=== PATIENT | female | born 1955 | race Caucasian/White ===

== ENCOUNTER 2020-01-02 12:53 | Outpatient (CLI) | payer OTHER, SELFPAY ==
--- NOTE | 2020-01-02 13:01 | MM_ITS ---
WS: [id number] BILATERAL SCREENING DIGITAL MAMMOGRAM WITH CAD HISTORY: SCREEN COMPARISON: 10/14/2013 Bilateral CC and MLO views submitted. Computer aided detection analyzed. Breast composition: There are scattered areas of fibroglandular density. No suspicious masses, microc alcifications or architectural distortion. Several calcifications in the anterior RIGHT breast have b een present since 2013. MM/[place] [id number] IMPRESSION: BI-RADS: 2-Benign FOLLOW UP: 1 Year Follow-up
== END 2020-01-02 12:54 | disposition home or self-care (01) ==
LOC: RADSHAW 12:57
PROVIDERS: Visit Provider Nurse Practitioner
DX: Z12.31 Encounter for screening mammogram for malignant neoplasm of breast (principal)
CPT/HCPCS: 77067

== ENCOUNTER 2021-01-01 14:18 | Outpatient (CLI) | payer OTHER, SELFPAY ==
--- NOTE | 2021-01-01 14:26 | MM_ITS ---
WS: [id number] BILATERAL SCREENING DIGITAL MAMMOGRAM WITH CAD HISTORY: SCREENING COMPARISON: 01/02/2020 and 10/14/2013 Bilateral CC and MLO views submitted. Computer aided detection analyzed. Breast composition: There are scattered areas of fibroglandular density. No suspicious masses, microc alcifications or architectural distortion. Benign calcifications in the anterior RIGHT breast. MM/[place] [id number] IMPRESSION: BI-RADS: 2-Benign FOLLOW UP: 1 Year Follow-up
== END 2021-01-01 14:19 | disposition home or self-care (01) ==
LOC: RADSHAW 14:23
PROVIDERS: Visit Provider Nurse Practitioner
DX: Z12.31 Encounter for screening mammogram for malignant neoplasm of breast (principal)
CPT/HCPCS: 77067

== ENCOUNTER → 2021-10-18 15:51 | Outpatient (BNVA) | payer MEDICARE, MEDICAID, SELFPAY | PROVIDERS: Visit Provider Nurse Practitioner | DX: Z13.6 Encounter for screening for cardiovascular disorders (principal); I10 Essential (primary) hypertension | CPT/HCPCS: 80053; 80061; 81000; 84443; 85025 ==

== ENCOUNTER 2021-10-21 21:46 | Emergency (ER) | payer MEDICARE, MEDICAID, SELFPAY ==
[2021-10-21 21:57] VITALS: BP 141/89; PULSE 83; RESP 16; TEMP 36.7; O2SAT 94; BMI 18.9
--- NOTE | 2021-10-21 22:48 | W.ED.WOUNDLC ---
HPI - Wound/Laceration General: Chief Complaint: Wound/Laceration Stated Complaint: Fall-Face/Eye Lac-bleeding Time Seen by Provider: 10/21/21 22:43 History of Present Illness: Ms. Rogers is a 66-year-old lady not on anticoagulation who is a smoker and daily drinker presents emerged department due to fall. She reports largely being at her baseline health and drinking about a case of beer today. She fell after tripping possibly over a pet and struck her face on the corner of a dresser. She denies prodromal symptoms or anything that prompted this other than tripping. She has otherwise been at her baseline health. She immediately had pain and bleeding which took some time to stop. She denies associated visual changes associate with her laceration eye. She does not have eye pain. no other specific changes in health, exacerbating, or alleviating factors identified. Onset (ago): minute(s) Location: face Patient tetanus UTD: No (unknown) Associated symptoms: Reports no associated symptoms Review of Systems General: Reports: 10 or more systems reviewed and unremarkable except in HPI and below PFSH ED PFSH: Medical History Cigarette smoker Surgical History History of foot surgery right and left foot History of hernia repair History of tonsillectomy and adenoidectomy History of tubal ligation Family History Denies family history of Diabetes Dementia Cancer Hypertension Social History Smoking and tobacco status: current every day smoker Second hand smoke exposure: No Smoking risk assessment/counseling performed?: Yes Alcohol intake: unknown Desire information about alcohol rehabilitation?: No Counseling given: No Desire information about substance/drug rehabilitation?: No Counseling given: No Adopted: No Caregiver/support person: No Lives independently: Yes Household members: spouse Housing: House Number of children: 1 service: No Current occupational status: retired History of recent travel: No Current gender identity: Female Physical Exam Const: COMMON NORMALS: alert GENERAL APPEARANCE: cooperative and well developed HENMT: COMMON NORMALS: normocephalic and atraumatic HEAD & SCALP: normocephalic and atraumatic THROAT: posterior oropharynx normal OTHER: No septal hematoma, no sweet signs or raccoon eyes, no otorhinorrhea. Eye: COMMON NORMALS: conjunctivae normal CONJUNCTIVA: Yes conjunctivae normal SCLERA: sclerae normal EYE IMAGES: 1. approximate area of laceration Neck/C-Spine: COMMON NORMALS: supple GENERAL: Yes trachea midline Resp: COMMON NORMALS: normal respiratory effort EFFORT & INSPECTION: Yes able to speak in complete sentences AUSCULTATION: diminished lung sounds Cardio: COMMON NORMALS: regular rate and regular rhythm RATE: regular rate RHYTHM: regular rhythm GI: COMMON NORMALS: Soft to palpation PALPATION: Yes Soft to palpation and No Tenderness to palpation present (GI) PERCUSSION: normal to percussion Extremity: GENERAL: Yes normal exam except as noted and No edema Neuro: COMMON NORMALS: moves all extremities SENSORIUM/ORIENTATION: Yes alert and No Orientation impaired Skin: NARRATIVE SKIN EXAM: scatter skin tears without active bleeding or need for repair on BUE Course ED course: - Patient was seen and evaluated by me at bedside - Patient placed on cardiac monitors, IV access obtained - Initial evaluation notable for exam as above, lower right eyelid laceration concerning for canalicular injury - Tdap ordered - Imaging notable for no acute bony abnormality or internal injury requiring intervention - Visual acuity: Right 20/70, left 20/100, bilaterally 20/70. Patient reports history of use of glasses. - I discussed the case with Elbert KIRAN who discussed the case with Dr. Ortiz with ophthalmology. He reviewed photographs that I took and sent with patient's permission. Patient can safely follow-up in the morning and have closure in clinic with indicated procedures. Ointment per their recommendations. - Upon serial reexamination after treatment the patient was improved, she appeared clinically sober - Based on patient history, evaluation, and testing as interpreted the most likely cause of the patient's condition is eyelid laceration secondary to facial trauma. - The results of ED evaluation were discussed with the patient including multiple discussions with regards to importance of follow-up for seen in the morning. I discussed prescriptions and/or symptomatic cares (if applicable) including appropriate and responsible use, followup plan, and return precautions. The patient verbalized understanding and felt safe for discharge. - Patient discharged in satisfactory condition. Note: Click bubbles or prepopulated tamez in note writing are used for assistance with data collection and billing and are inherently more limited than narrative and other text portions of this note. Please use narrative for additional clinical history and defer to narrative/free test for any case of contradictory information. If information appears in only free text or click bubble it should be considered present or absent as reported. Please contact note commercial loan underwriter for clarifications of clinical information or contradictory information. MDM is a brief summary, contradictory or erroneous seeming information should be clarified and full note should be reviewed. Vital Signs: Vital signs: Vital Signs Temperature 98.1 F 10/21/21 21:57 Pulse Rate 79 10/21/21 23:05 Respiratory Rate 20 H 10/21/21 23:05 Blood Pressure 141/95 10/21/21 23:05 Pulse Oximetry 95 10/21/21 23:05 MDM - Wound/Laceration Medical Decision Making 66-year-old lady presenting the emergency department due to head injury and laceration related to fall while drinking. Patient has significant laceration in the inferior lid medially near the canthus concerning for canalicular laceration. Discussed with ophthalmology who reviewed pictures taken with the patient's permission. Visual acuity 20/70 right/bilateral and 20/100 left. Scattered abrasions and skin tears not requiring repair otherwise noted. No other injury identified on CT scan. Plan to have patient call ophthalmology clinic first thing in the morning and be seen same day for wound closure and appropriate treatments. Continue Maxitrol ointment. Medical Records I reviewed the patient's medical records. Lab Data I reviewed the patient's lab results. Radiology Impressions Face CT 10/21/21 23:11 IMPRESSION: No acute facial fracture. Other than the absence of teeth no significant change compared with 10/01/[address] 10/21/21 23:11 IMPRESSION: No acute intracranial abnormality. Discharge Plan Discharge Patient Disposition: Home Clinical Impression: Laceration, Alcohol intoxication, Fall, Skin tear, Head injuries, Eyelid laceration, right Condition: Stable Prescriptions: No Action valsartan [Diovan] 80 mg tablet 80 mg PO DAILY Qty: 30 5RF Discharge Orders: Discharge ED (Routine); Ordered 10/22/21 Ordered By: Med Feliciano Discharge Diet: Usual diet Discharge Activity: Limit activity as instructed Patient Instructions: Laceration (ED), At-Risk Alcohol Use (ED), Skin Tear (ED), Fall Prevention (ED), Facial Laceration (ED) Activity Restrictions/Additional Instructions: Thank you for visiting the emergency department. You were seen and evaluated for fall with head injury and lacerations. The most concerning laceration as discussed is your eyelid laceration. This requires follow-up in the morning with [facility]. Please call [phone] at 8 am and let them know that you were seen in the ER and the case was discussed with the ophthalmology team. Their address is [address] [place] [address] [place] [address]. Failure to follow up may lead to perminant debility, loss of vision, permanent disfigurement, or worse. Please use the maxitrol as discussed. Return to the emergency department for worsening symptoms or anything else that you are concerned about and feel needs emergency department evaluation. Coding Level of Care Code ED [employer] Technician for Zunilda Price
[2021-10-21 23:05] VITALS: BP 141/95; PULSE 79; RESP 20; O2SAT 95
--- NOTE | 2021-10-21 23:11 | CTR_ITS ---
PROCEDURE INFORMATION: Exam: CT Maxillofacial Without Contrast Exam date and time: 10/21/2021 11:32 PM Age: 66 years old Clinical indication: Injury or trauma; Blunt trauma (contusions or hematomas); Eyelid and nose and orbit/periorbital; Lower right; Patient HX: Fall with lacerations to R eye; Additional info: Fall, lacerations TECHNIQUE: Imaging protocol: Computed tomography images of the face without contrast. Radiation optimization: All CT scans at this facility use at least one of these dose optimization techniques: automated exposure control; mA and/or kV adjustment per patient size (includes targeted exams where dose is matched to clinical indication); or iterative reconstruction. COMPARISON: CT head wo con* [id number] 10/21/2021 11:29 PM RADIATION DOSE METRICS: Total DLP (mGy-cm): 744.34 FINDINGS: Orbital cavities: Orbits are normal. Globes are unremarkable. Bones/joints: There is deviation of the nasal bones towards the left possibly the result of old injury. No acute facial fracture is identified. There is degenerative change in the right temporomandibular joint with flattening of the right mandibular condyle. There is nasal septal deviation towards the right. Paranasal sinuses: Paranasal sinuses are normally aerated and clear. Soft tissues: There is some mild soft tissue swelling over the orbits. Dental: This patient has no teeth. CT/CT facial bones wo con* [id number] IMPRESSION: No acute facial fracture. Other than the absence of teeth no significant change compared with 10/01/2010
--- NOTE | 2021-10-21 23:11 | CTR_ITS ---
PROCEDURE INFORMATION: Exam: CT Head Without Contrast Exam date and time: 10/21/2021 11:29 PM Age: 66 years old Clinical indication: Injury or trauma; Blunt trauma (contusions or hematomas); Consciousness not specified; Patient HX: Fall, hitting head and face; Additional info: Fall, head injury TECHNIQUE: Imaging protocol: Computed tomography of the head without contrast. Radiation optimization: All CT scans at this facility use at least one of these dose optimization techniques: automated exposure control; mA and/or kV adjustment per patient size (includes targeted exams where dose is matched to clinical indication); or iterative reconstruction. COMPARISON: No relevant prior studies available. RADIATION DOSE METRICS: Total DLP (mGy-cm): 788.06 FINDINGS: Brain: Normal. No hemorrhage. Unremarkable white matter. No mass effect. Cerebral ventricles: No ventriculomegaly. Paranasal sinuses: Visualized sinuses are unremarkable. No fluid levels. Mastoid air cells: Visualized mastoid air cells are well aerated. Bones/joints: Unremarkable. No acute fracture. Soft tissues: Unremarkable. CT/CT head wo con* [id number] IMPRESSION: No acute intracranial abnormality.
[2021-10-22] MEDS: tetanus-dipt-pertussis 0.5 mL SDV IM (00:11)
[2021-10-22] MEDS: neomycin-poly-dex Op oint 3.5 gm 1 APPLIC EYE-RIGHT (01:00)
--- NOTE | 2021-10-22 01:42 | PC.NURSE ---
visual accuity completed
== END 2021-10-22 01:32 | disposition home or self-care (01) ==
PROVIDERS: Emergency Provider Emergency Medicine
DX: S01.111A Laceration without foreign body of right eyelid and periocular area, initial encounter (principal); S00.81XA Abrasion of other part of head, initial encounter; F10.129 Alcohol abuse with intoxication, unspecified; Y90.9 Presence of alcohol in blood, level not specified; S09.90XA Unspecified injury of head, initial encounter; W01.0XXA Fall on same level from slipping, tripping and stumbling without subsequent striking against object, initial encounter; F17.210 Nicotine dependence, cigarettes, uncomplicated; Z23 Encounter for immunization
CPT/HCPCS: 70450; 70486; 90471; 90715; 99283

== ENCOUNTER 2022-01-04 15:08 | Outpatient (CLI) | payer MEDICARE, MEDICAID, SELFPAY ==
--- NOTE | 2022-01-04 15:20 | MM_ITS ---
WS: [id number] BILATERAL 3D TOMOSYNTHESIS DIGITAL SCREENING MAMMOGRAPHY WITH CAD CLINICAL INFORMATION: SCREENING HISTORY: Screening mammogram. No current complaints. COMPARISON: January 01, 2021 TECHNIQUE: Bilateral CC and MLO views. FINDINGS: The breasts are composed of heterogeneous fibroglandular density tissue, which can limit the detectio n of small underlying mass lesions. Punctate and lucent centered calcifications. No suspicious mass, asymmetry, calcifications, or architectural distortion. No evidence of malignancy. MM/[place] [id number] IMPRESSION: BI-RADS: 2-Benign FOLLOW UP: 1 Year Follow-up Recommend return to annual screening mammography.
== END 2022-01-04 15:09 | disposition home or self-care (01) ==
LOC: RAD 15:12
PROVIDERS: PCP Nurse Practitioner; Visit Provider Nurse Practitioner
DX: Z12.31 Encounter for screening mammogram for malignant neoplasm of breast (principal)
CPT/HCPCS: 77063; 77067

== ENCOUNTER → 2022-03-30 09:26 | Outpatient (BNVA) | payer MEDICARE, MEDICAID, SELFPAY | PROVIDERS: PCP Nurse Practitioner; Visit Provider Nurse Practitioner | DX: I10 Essential (primary) hypertension (principal) | CPT/HCPCS: 80053; 80061; 84443 ==

== ENCOUNTER → 2022-09-29 10:24 | Outpatient (BNVA) | payer MEDICARE, MEDICAID, SELFPAY | PROVIDERS: PCP Nurse Practitioner; Visit Provider Nurse Practitioner | DX: I10 Essential (primary) hypertension (principal) | CPT/HCPCS: 80053; 80061; 84443; 85025 ==

== ENCOUNTER 2023-01-10 10:26 | Outpatient (CLI) | payer MEDICARE, MEDICAID, SELFPAY ==
--- NOTE | 2023-01-10 10:38 | MM_ITS ---
WS: [id number] BILATERAL SCREENING DIGITAL TOMOSYNTHESIS MAMMOGRAM WITH CAD HISTORY: SCREENING COMPARISON: 01/04/2022, 01/01/2021 Bilateral CC and MLO views with tomosynthesis and synthetic mammography submitted. Computer aided det ection analyzed. Breast composition: There are scattered areas of fibroglandular density. No suspicious masses, microc alcifications or architectural distortion. MM/[place] [id number] IMPRESSION: BI-RADS: 1-Negative FOLLOW UP: 1 Year Follow-up
== END 2023-01-10 10:27 | disposition home or self-care (01) ==
PROVIDERS: PCP Nurse Practitioner; Visit Provider Nurse Practitioner
DX: Z12.31 Encounter for screening mammogram for malignant neoplasm of breast (principal)
CPT/HCPCS: 77063; 77067

== ENCOUNTER → 2023-03-30 10:17 | Outpatient (BNVA) | payer MEDICARE, MEDICAID, SELFPAY | PROVIDERS: PCP Nurse Practitioner; Visit Provider Nurse Practitioner | DX: I10 Essential (primary) hypertension (principal) | CPT/HCPCS: 80053; 80061; 84443 ==

== ENCOUNTER 2023-07-07 18:41 | Emergency (ER) | payer MEDICARE, MEDICAID, SELFPAY ==
[2023-07-07 18:49] VITALS: BP 137/85; PULSE 73; RESP 17; O2SAT 95; BMI 18.2
--- NOTE | 2023-07-07 19:06 | CTR_ITS ---
PROCEDURE INFORMATION: Exam: CT Head Without Contrast Exam date and time: 07/07/2023 7:17 PM Age: 68 years old Clinical indication: Injury or trauma; Blunt trauma (contusions or hematomas); Patient HX: Fall at home outside face first onto ground. Contusion to left orbit. ETOH on board. ; Additional info: Fall head inj TECHNIQUE: Imaging protocol: Computed tomography of the head without contrast. Radiation optimization: All CT scans at this facility use at least one of these dose optimization techniques: automated exposure control; mA and/or kV adjustment per patient size (includes targeted exams where dose is matched to clinical indication); or iterative reconstruction. REPORTING DATA: Count of CT and Cardiac NM exams in prior 12 months: This patient has received 0 known CTs and 0 known cardiac nuclear medicine studies in the 12 months prior to the current study. COMPARISON: CT head wo con* [id number] 10/21/2021 11:29 PM RADIATION DOSE METRICS: Total DLP (mGy-cm): 1095.8 FINDINGS: Brain: No acute intracranial hemorrhage. No acute territorial region of myers-white dedifferentiation. No extra-axial collection. No mass effect or midline shift. Mild generalized parenchymal volume loss. Cerebral ventricles: No acute hyrocephalus. Paranasal sinuses: Visualized sinuses are well-aearted. No fluid levels. Mastoid air cells: Visualized mastoid air cells are well aerated. Orbital cavities: Globes are intact. Retrobulbar fat is preserved. Bones/joints: Incompletely imaged comminuted nasal bone fracture. No acute calvarial fracture. Soft tissues: Small left periorbital soft tissues contusion/hematoma. CT/CT head wo con* [id number] IMPRESSION: 1. No acute intracranial hemorrhage or acute calvarial fracture. 2. Incompletely imaged comminuted nasal bone fracture. Small left periorbital soft tissues contusion/hematoma. Refer to CT maxillofacial report.
--- NOTE | 2023-07-07 19:06 | CTR_ITS ---
PROCEDURE INFORMATION: Exam: CT Maxillofacial Without Contrast Exam date and time: 07/07/2023 7:17 PM Age: 68 years old Clinical indication: Injury or trauma; Blunt trauma (contusions or hematomas); Nose and orbit/periorbital; Patient HX: Fall at home outside face first onto ground. Contusion to left orbit. Nose is deviated. ETOH on board. ; Additional info: Fall face inj TECHNIQUE: Imaging protocol: Computed tomography of the face without contrast. Radiation optimization: All CT scans at this facility use at least one of these dose optimization techniques: automated exposure control; mA and/or kV adjustment per patient size (includes targeted exams where dose is matched to clinical indication); or iterative reconstruction. REPORTING DATA: Count of CT and Cardiac NM exams in prior 12 months: This patient has received 0 known CTs and 0 known cardiac nuclear medicine studies in the 12 months prior to the current study. COMPARISON: CT facial bones wo con* [id number] 10/21/2021 11:32 PM RADIATION DOSE METRICS: Total DLP (mGy-cm): 617.4 FINDINGS: Orbital cavities: Retrobulbar fat is preserved. Globes are intact. Bones/joints: Acute comminuted and displaced bilateral nasal bone fractures. Bilateral frontal process of the maxilla fractures, comminuted and displaced on the right. Rightward nasal septum deviation with large right-sided bony septal spur noted. TMJ alignment is preserved. Bilateral TMJ osteoarthritis, [id number]. Paranasal sinuses: Normal. No air-fluid levels. Soft tissues: Soft tissue swelling/contusion about the nasal bone fractures. Contusion and small hematoma in the left medial periorbital soft tissues. CT/CT facial bones wo con* [id number] IMPRESSION: 1. Acute comminuted and displaced bilateral nasal bone fractures. Acute bilateral frontal process of the maxilla fractures, comminuted and displaced on the right. 2. Soft tissue swelling/contusion about the nasal bone fractures. Contusion and small hematoma in the left medial periorbital soft tissues.
--- NOTE | 2023-07-07 19:06 | CTR_ITS ---
PROCEDURE INFORMATION: Exam: CT Cervical Spine Without Contrast Exam date and time: 07/07/2023 7:17 PM Age: 68 years old Clinical indication: Injury or trauma; Blunt trauma; Patient HX: Fall at home outside face first onto ground. Contusion to left orbit. ETOH on board. ; Additional info: Fall head inj TECHNIQUE: Imaging protocol: Computed tomography of the cervical spine without contrast. Radiation optimization: All CT scans at this facility use at least one of these dose optimization techniques: automated exposure control; mA and/or kV adjustment per patient size (includes targeted exams where dose is matched to clinical indication); or iterative reconstruction. REPORTING DATA: Count of CT and Cardiac NM exams in prior 12 months: This patient has received 0 known CTs and 0 known cardiac nuclear medicine studies in the 12 months prior to the current study. COMPARISON: CT cervical spin wo con* [id number] 07/07/2023 7:17 PM RADIATION DOSE METRICS: Total DLP (mGy-cm): 131.2 FINDINGS: Bones/joints: Craniocervical and facet alignment is preserved. No acute appearing vertebral body compression deformity. Multilevel cervical spondylosis. Lungs: Clear. Emphysema. Soft tissues: Unremarkable. CT/CT cervical spin wo con* [id number] IMPRESSION: No acute fracture or traumatic malalignment.
--- NOTE | 2023-07-07 21:26 | ED_ITS ---
HPI - Fall General: Chief Complaint: Fall Stated Complaint: fall/ laceration Time Seen by Provider: 07/07/23 21:20 History of Present Illness: Presents to the ER with a fall. Patient had been drinking this afternoon when she was getting up and walking around her woodpile by her woodstove and tripped over one of her cats and fell into her wood pile. Patient has obvious abrasions and bruising and skin tears to her face and forearms. Patient denies any loss of consciousness. Bleeding is controlled. denies any type of blood thinner. Patient says she tripped and did not pass out blackout or lose consciousness. Review of Systems General: Reports: 10 or more systems reviewed and unremarkable except in HPI and below PFSH ED PFSH: Medical History Essential hypertension Cigarette smoker Surgical History History of tonsillectomy and adenoidectomy History of hernia repair History of foot surgery right and left foot History of tubal ligation Family History Denies family history of Diabetes Dementia Cancer Hypertension Social History Smoking and tobacco/nicotine status: current every day tobacco/nicotine user Second hand smoke exposure: No Alcohol intake: unknown Substance/Drug Use: unknown Adopted: No Caregiver/support person: No Lives independently: Yes Household members: spouse Housing: House Number of children: 1 service: No Current occupational status: retired Do you think of yourself as: Straight/Heterosexual Current gender identity: Female Physical Exam Const: COMMON NORMALS: no acute distress, average body habitus, patient oriented x3, no limitations, healthy appearing, alert and well nourished HENMT: COMMON NORMALS: normocephalic, atraumatic ( abrasion above right eyebrow, bruising and swelling noted to both eye reg), hearing grossly normal bilaterally, external ears normal, moist oral mucous membranes and oropharynx normal; external nose not normal ( External nose swollen, deviated, abrasion to right side) HEAD & SCALP: normocephalic and atraumatic ( abrasion above right eyebrow, bruising and swelling noted to both eye reg) NOSE: external nose not normal ( External nose swollen, deviated, abrasion to right side) EXTERNAL EAR: Yes external ears normal Eye: COMMON NORMALS: Equal, round and reactive pupils present, EOMs intact bilaterally, conjunctivae normal and no scleral icterus CONJUNCTIVA: Yes conjunctivae normal PUPIL: Yes Equal, round and reactive pupils present Neck/C-Spine: COMMON NORMALS: full ROM, no lymphadenopathy, supple, no meningeal signs, no JVD and Thyroid normal THYROID: Thyroid normal Chest: COMMONS NORMALS: normal inspection of the chest Resp: COMMON NORMALS: normal respiratory effort, No retractions, No use of accessory muscles and clear to auscultation bilaterally AUSCULTATION: clear to auscultation bilaterally Cardio: COMMON NORMALS: no JVD, regular rate, regular rhythm, S1 normal heart sound present, S2 normal heart sound present, No gallops present (Cardio), No clicks present (Cardio), No murmurs present (Cardio) and No rub (Cardio) RATE: regular rate RHYTHM: regular rhythm HEART SOUNDS: S1 normal heart sound present and S2 normal heart sound present GI: COMMON NORMALS: Normal to inspection, nondistended, normoactive bowel sounds present, Soft to palpation, non-tender, No hepatosplenomegaly present and no masses PALPATION: Yes Soft to palpation and Yes No hepatosplenomegaly present Extremity: NARRATIVE EXTREMITY EXAM: Superficial skin tears noted to forearms bilateral Neuro: COMMON NORMALS: patient oriented x3 SENSORIUM/ORIENTATION: Yes alert MENINGEAL SIGNS: Yes no meningeal signs Course Vital Signs: Vital signs: Vital Signs Pulse Rate 73 07/07/23 18:49 Respiratory Rate 17 07/07/23 18:49 Blood Pressure 137/85 07/07/23 18:49 Pulse Oximetry 95 07/07/23 18:49 Oxygen Delivery Me thod Room Air 07/07/23 18:49 MDM - Fall Medical Decision Making patient fell over her cat and into a wood pile face first. She has multiple abrasions and bruising over her nose both eyes and skin tears over both forearms. CT scans was obtained with her cervical spine, face and head, acute was comminuted displaced bilateral nasal bone fractures and bilateral frontal process of the maxilla fractures. These findings was described to the patient. Patient will be discharged home and a consult to ENT will be placed. Lab Data Radiology Impressions Cervical Spine CT 07/07/23 19:06 IMPRESSION: No acute fracture or traumatic malalignment. Face CT 07/07/23 19:06 IMPRESSION: 1. Acute comminuted and displaced bilateral nasal bone fractures. Acute bilateral frontal process of the maxilla fractures, comminuted and displaced on the right. 2. Soft tissue swelling/contusion about the nasal bone fractures. Contusion and small hematoma in the left medial periorbital soft tissues. Head CT 07/07/23 19:06 IMPRESSION: 1. No acute intracranial hemorrhage or acute calvarial fracture. 2. Incompletely imaged comminuted nasal bone fracture. Small left periorbital soft tissues contusion/hematoma. Refer to CT maxillofacial report. All radiology interpretation(s) finalized by discharge Discharge Plan Discharge Patient Disposition: Home Clinical Impression: Fall Qualifiers: Encounter type: initial encounter Qualified Code(s): W19.XXXA - Unspecified fall, initial encounter Multiple facial bone fractures Qualifiers: Encounter type: initial encounter Fracture type: closed Qualified Code(s): S02.92XA - Unspecified fracture of facial bones, initial encounter for closed fracture Condition: Stable Prescriptions: No Action hydrochlorothiazide 25 mg tablet 25 mg PO DAILY Qty: 30 5RF valsartan [Diovan] 160 mg tablet 160 mg PO DAILY Qty: 30 5RF Discharge Orders: Discharge ED (Routine); Ordered 07/07/23 Ordered By: Jessee Gamboa Referrals: Siri Rodriguez FNP-C [Primary Care Provider] - 1 week Patient Instructions: Fractures - Facial, Facial Fracture (ED) Activity Restrictions/Additional Instructions: You have been referred to case management for consult to appointment for ear nose and throat physician. They will further really evaluate and treat your nasal bone fractures. If you have not heard from them within a couple days please feel free to call us. Otherwise follow-up with your family practice physician within the next 7 to 10 days or sooner as needed. Please try to refrain from blowing your nose during this time. Coding Level of Care Code ED Campaign Specialist for Zunilda Price
--- NOTE | 2023-07-10 08:39 | DCPLANNER ---
Referral was sent to [facility] on 07/10/23 at 0843. Clinic to contact patient.
== END 2023-07-07 21:48 | disposition home or self-care (01) ==
PROVIDERS: Emergency Provider Emergency Medicine; PCP Nurse Practitioner
DX: S02.2XXA Fracture of nasal bones, initial encounter for closed fracture (principal); S02.40CA Maxillary fracture, right side, initial encounter for closed fracture; S02.40DA Maxillary fracture, left side, initial encounter for closed fracture; S00.83XA Contusion of other part of head, initial encounter; S51.812A Laceration without foreign body of left forearm, initial encounter; S51.811A Laceration without foreign body of right forearm, initial encounter; S00.211A Abrasion of right eyelid and periocular area, initial encounter; I10 Essential (primary) hypertension; Z72.0 Tobacco use; W01.0XXA Fall on same level from slipping, tripping and stumbling without subsequent striking against object, initial encounter
CPT/HCPCS: 70450; 70486; 72125; 99284

== ENCOUNTER → 2023-10-05 09:21 | Outpatient (BNVA) | payer MEDICARE, MEDICAID, SELFPAY | PROVIDERS: PCP Nurse Practitioner; Visit Provider Nurse Practitioner | DX: I10 Essential (primary) hypertension (principal) | CPT/HCPCS: 80053; 80061; 85025 ==

== ENCOUNTER 2023-10-12 08:14 | Outpatient (CLI) | payer MEDICARE, MEDICAID, SELFPAY ==
--- NOTE | 2023-10-12 09:00 | CT_ITS ---
WS: [id number] LDCT LUNG CANCER SCREENING TECHNIQUE: Noncontrast CT of the chest with coronal and sagittal reformatted images. CLINICAL INFORMATION: F17.210 - Nicotine dependence, cigarettes, uncomplicated COMPARISON: None. DLP: 41.31 mGy.cm DIvol: Mean CTDIvol: 0.70 (mGy) All CT scans at [facility] use at least one of these dose optimization techniques: automat ed exposure control; mA and/or kV adjustment per patient size (includes targeted exams where dose is matched to clinical indication); or iterative reconstruction. FINDINGS: Mild chronic emphysematous changes. Tiny nodule along the LEFT fissure. Tiny nodule RIGHT u pper lobe. Slight bibasilar atelectases. Calcified granuloma LEFT lower lobe. Prominent ascending thoracic aorta measuring 3.4 cm. Normal caliber descending thoracic aorta. Aortic calcification. Coronary calcification. No mediastinal or hilar lymphadenopathy. No axillary lymphade nopathy. Adrenal glands are normal. Normal GE junction. Partially visualized LEFT renal cyst. Splenic granulom as. Hypertrophic changes thoracic spine. Mild thoracic kyphosis. Thoracolumbar curve. IMPRESSION: CT/CT lung screening [id number] LUNG-RADS: 2-Benign Appearance or Behavior FOLLOW UP: 12 Month: Continue annual screening with LDCT
== END 2023-10-12 08:15 | disposition home or self-care (01) ==
LOC: RAD 08:14
PROVIDERS: PCP Nurse Practitioner; Visit Provider Nurse Practitioner
DX: Z12.2 Encounter for screening for malignant neoplasm of respiratory organs (principal); F17.210 Nicotine dependence, cigarettes, uncomplicated; J43.9 Emphysema, unspecified; R91.8 Other nonspecific abnormal finding of lung field; J98.11 Atelectasis; J84.10 Pulmonary fibrosis, unspecified
CPT/HCPCS: 71271

== ENCOUNTER 2024-02-13 10:04 | Outpatient (CLI) | payer MEDICARE, MEDICAID, SELFPAY ==
--- NOTE | 2024-02-13 10:00 | MM_ITS ---
WS: [id number] Bilateral screening 3D tomosynthesis digital mammogram, 02/13/2024 Clinical Data: SCREENING Comparison: 01/10/2023, 01/04/2022, 02/01/2021, 02/02/2020, 10/14/2013, 08/20/2012, 03/10/2010, 01/14/2008, 01/08. Findings: The breast parenchymal pattern shows fibroglandular tissue, especially anteriorly. No spiculated mass es or clustered calcifications are seen. There are no secondary signs of carcinoma. MM/[place] [id number] Impression: 1. Negative bilateral mammogram unchanged. 2. Recommend annual screening mammograms. BIRADS: 1-Negative FOLLOW UP: 1 Year Follow-up The CAD pari mutual ticket checker was used.
== END 2024-02-13 10:05 | disposition home or self-care (01) ==
LOC: MOBLMAM 10:15
PROVIDERS: PCP Nurse Practitioner; Visit Provider Nurse Practitioner
DX: Z12.31 Encounter for screening mammogram for malignant neoplasm of breast (principal)
CPT/HCPCS: 77063; 77067

== ENCOUNTER → 2024-03-07 09:38 | Outpatient (BNVA) | payer MEDICARE, MEDICAID, SELFPAY | PROVIDERS: PCP Nurse Practitioner; Visit Provider Nurse Practitioner | DX: I10 Essential (primary) hypertension (principal) | CPT/HCPCS: 80053; 80061; 84443 ==

== ENCOUNTER → 2024-09-10 09:00 | Outpatient (BNVA) | payer MEDICARE, MEDICAID, SELFPAY | PROVIDERS: PCP Nurse Practitioner; Visit Provider Nurse Practitioner | DX: I10 Essential (primary) hypertension (principal) | CPT/HCPCS: 80053; 80061; 81000; 85025 ==

== ENCOUNTER → 2025-03-03 12:17 | Outpatient (BNVA) | payer MEDICARE, MEDICAID, SELFPAY | PROVIDERS: PCP Nurse Practitioner; Visit Provider Nurse Practitioner | DX: E55.9 Vitamin D deficiency, unspecified (principal); I10 Essential (primary) hypertension | CPT/HCPCS: 80053; 80061; 82306; 84443 ==

== ENCOUNTER 2025-03-20 09:59 | Outpatient (CLI) | payer MEDICARE, MEDICAID, SELFPAY ==
--- NOTE | 2025-03-20 10:00 | MM_ITS ---
WS: [id number] BILATERAL SCREENING DIGITAL TOMOSYNTHESIS MAMMOGRAM WITH CAD HISTORY: Z12.31 - Encounter for screening mammogram for malignant ... COMPARISON: 02/13/2024, 01/10/2023, 01/04/2022 Bilateral CC and MLO views with tomosynthesis and synthetic mammography submitted. Computer aided detection analyzed. Breast composition: The breasts are heterogeneously dense, which may obscure small masses. No suspicious masses, microcalcifications or architectural distortion. Dense asymmetry bilaterally in the retroareolar region. There are benign calcifications in each breast. MM/MM [facility] tomosynthesis [id number] IMPRESSION: BI-RADS: 2 - Benign FOLLOW UP: 1 Year Follow-up
== END 2025-03-20 10:00 | disposition home or self-care (01) ==
LOC: MOBLMAM 10:00
PROVIDERS: PCP Nurse Practitioner; Visit Provider Nurse Practitioner
DX: Z12.31 Encounter for screening mammogram for malignant neoplasm of breast (principal); R92.333 Mammographic heterogeneous density, bilateral breasts; N64.89 Other specified disorders of breast; R92.1 Mammographic calcification found on diagnostic imaging of breast
CPT/HCPCS: 77063; 77067

== ENCOUNTER → 2025-06-25 10:11 | Outpatient (BNVA) | payer MEDICARE, MEDICAID, SELFPAY | PROVIDERS: PCP Nurse Practitioner; Visit Provider Nurse Practitioner | DX: I10 Essential (primary) hypertension (principal) | CPT/HCPCS: 80053 ==

== ENCOUNTER 2025-07-24 14:52 | Inpatient (IN) | payer MEDICARE, MEDICAID, SELFPAY ==
[2025-07-24] VITALS (53 sets, daily range): BP systolic 73–113; BP diastolic 45–73; PULSE 69–103; RESP 15–27; TEMP 36.7–37.2; O2SAT 88–100
--- NOTE | 2025-07-24 14:57 | XR_ITS ---
WS: [id number] Portable AP upright chest, 07/24/2025 Clinical Data: Weakness Comparison: Portable chest, 05/12/2012 Findings: No nodules, masses or effusions are seen. The heart is normal. The pulmonary vascularity is not increased. No pneumonia or pneumothorax is seen. The aortic arch and descending thoracic aorta show calcification and tortuosity. The diaphragms are flattened. Decorative items surround the lung apices and patient's neck. XR/XR chest 1V portable [id number] Impression: Atherosclerosis and hyperinflation.
--- NOTE | 2025-07-24 15:06 | ECG_ITS ---
[facility] Date: 2025-07-24 Pat Name: Allie Rogers Department: Room: Gender: Female Scrap Worker: : [id number] Requested By: Evan Johnson Order Number: [id number] Reading MD: YISEL PORRAS Measurements Intervals Eva Rate: 103 P: 68 ND: 128 QRS: 69 QRSD: 106 T: 54 QT: 333 QTc: 436 Interpretive Statements SINUS TACHYCARDIA WITH OCCASIONAL SUPRAVENTRICULAR PREMATURE COMPLEXES ABNORMAL RHYTHM ECG No previous ECG available for comparison Electronically Signed On 07-30-2025 20:24:38 ENGINEERING SYSTEMS ANALYST by YISEL PORRAS [email or web address]
--- OUTSIDE RECORDS SUMMARY | 2025-07-24 15:20 | XMS_ITS | Clinical Summary ---
Author Organization [employer] Address [address] Attn: Epic Prelude ADT [place] [address] Care Team Providers Care Wage And Hour Investigator Name Role Phone Unavailable Primary Care Provider Unavailabl e Allergies No known active allergies Medications oxyCODONE-acetami nophen (PERCOCET) 5-325 mg tablet Take 1 Tablet by mouth every 6 hours as needed for Pain. Max Daily Amount: 4 Tablets 20 Tablet 0 7 Active silver sulfADIAZINE (SILVADENE) 1 % Cream Apply to affected area daily. 400 Gram None 7 Active Immunizations Immunization Administration Dates Next Due (ADACEL/BOOSTRIX)(10 YR UP) TDAP VACCINE, 0.5ML, IM 07/12/2017 Social History Tobacco Use Types Packs/Day Years Used Date Smoking Tobacco: Every Day Cigarettes Smokeless Tobacco: Never Alcohol Use Standard Drinks/Week Comments Yes 12 (1 standard drink = 0.6 oz pu re alcohol) Comments Unknown Sex and Gender Information Value Date Recorded Sex Assigned at Not on file Legal Sex Female 1:05 AM CONTROL SYSTEMS DEVELOPER Gender Identity Not on file Sexual Orientation Not on file Last Filed Vital Signs Vital Sign Reading Time Taken Comments Blood Pressure 144/81 07/12/2017 3:23 AM CONTROL SYSTEMS DEVELOPER Pulse - - Temperature 36.5 C (97.7 F) 07/12/2017 3:23 AM CONTROL SYSTEMS DEVELOPER Respiratory Rate 16 07/12/2017 3:23 AM CONTROL SYSTEMS DEVELOPER Oxygen Saturation - - Inhaled Oxygen Concentration - - Weight 55.3 kg (122 lb) 07/12/2017 1:43 AM CONTROL SYSTEMS DEVELOPER Height 172.7 cm (5' 8 ) 07/12/2017 1:43 AM CONTROL SYSTEMS DEVELOPER Body Mass Index 18.55 07/12/2017 1:43 AM CONTROL SYSTEMS DEVELOPER Plan of Treatment Health Maintenance Due Date Last Done Comments BREAST CANCER SCREENING 1996 COLORECTAL SCREENING 2001 Colorectal Cancer Screening 2001 FIT-DNA Q 3 years 2001 FIT/FOBT Q 1 year 2001 Flex Sig/CT Colonography Q 5 years 2001 PNEUMOCOCCAL VACCINE 50+ YEARS (1 of 1 - PCV) 05/02/20 ZOSTER VACCINE (1 of 2) 2006 OSTEOPOROSIS SCREENING 2021 INFLUENZA VACCINE (#1) 2025 DTAP/TDAP/TD VACCINES (2 - Td or Tdap) 07/12/2027 RSV VACCINE (60+ or ) (1 - 1-dose 75+ series) 2031
--- OUTSIDE RECORDS SUMMARY | 2025-07-24 15:20 | XMS_ITS | Clinical Summary ---
Author Organization [facility]arina Cresp[facility] Address [address] [place] [address] Phone Care Team Providers Care Jewelry Coater Name Role Phone Unavailable Primary Care Provider Unavailabl e Allergies No known active allergies Medications oxyCODONE-acetami nophen (PERCOCET) 5-325 mg tablet Take 1 Tablet by mouth every 6 hours as needed for Pain. Max Daily Amount: 4 Tablets 20 Tablet 7 Active silver sulfADIAZINE (SILVADENE) 1 % Cream Apply to affected area daily. 400 Gram None 7 Active Immunizations Immunization Administration Dates Next Due (ADACEL/BOOSTRIX)(10 YR UP) TDAP VACCINE, 0.5ML, IM 07/12/2017 Social History Tobacco Use Types Packs/Day Years Used Date Smoking Tobacco: Every Day Cigarettes Smokeless Tobacco: Never Tobacco Cessation:Ready to Q uit: No Alcohol Use Standard Drinks/Week Comments Yes 12 (1 standard drink = 0.6 oz pu re alcohol) Comments No Sex and Gender Information Value Date Recorded Sex Assigned at Not on file Legal Sex Female 1:27 AM ELECTRICAL EQUIPMENT TESTER Gender Identity Not on file Sexual Orientation Not on file Last Filed Vital Signs Vital Sign Reading Time Taken Comments Blood Pressure 144/81 07/12/2017 3:23 AM ELECTRICAL EQUIPMENT TESTER Pulse - - Temperature 36.5 C (97.7 F) 07/12/2017 3:23 AM ELECTRICAL EQUIPMENT TESTER Respiratory Rate 16 07/12/2017 3:23 AM ELECTRICAL EQUIPMENT TESTER Oxygen Saturation 100% 07/12/2017 3:23 AM ELECTRICAL EQUIPMENT TESTER Inhaled Oxygen Concentration - - Weight 55.3 kg (122 lb) 07/12/2017 1:43 AM ELECTRICAL EQUIPMENT TESTER Height 172.7 cm (5' 8 ) 07/12/2017 1:43 AM ELECTRICAL EQUIPMENT TESTER Body Mass Index 18.55 07/12/2017 1:43 AM ELECTRICAL EQUIPMENT TESTER Plan of Treatment Health Maintenance Due Date Last Done Comments BREAST CANCER SCREENING 1996 COLORECTAL SCREENING 2001 Colorectal Cancer Screening 2001 FIT-DNA Q 3 years 2001 FIT/FOBT Q 1 year 2001 Flex Sig/CT Colonography Q 5 years 2001 PNEUMOCOCCAL VACCINE 50+ YEARS (1 of 1 - PCV) 05/02/20 06 ZOSTER VACCINE (1 of 2) 2006 OSTEOPOROSIS SCREENING 2021 INFLUENZA VACCINE (#1) 2025 DTAP/TDAP/TD VACCINES (2 - Td or Tdap) 07/12/2027 RSV VACCINE (60+ or ) (1 - 1-dose 75+ series) 2031
--- NOTE | 2025-07-24 15:22 | ED_ITS ---
HPI - Weakness 2 General: Chief complaint: Weakness Stated complaint: WEAKNESS Time Seen by Provider: 07/24/25 14:56 History of Present Illness: 70-year-old female presents to the emerg ency room via EMS with complaints of weakness for the last 3 days. Reports dark black tarry stools mild abdominal discomfort. Generalized weakness shortness of breath with any activity Associated symptoms: Reports melena; Denies chest pain, chills, dysuria or fever(s) Related Data Previous Rx's ?Medication ?Instructions ?Recorded albuterol sulfate 90 mcg/actuation 2 puff inhalation Q 6H PRN 06/25/25 aerosol inhaler (Ventolin HFA) shortness of breath or wheezing #8.5 grams folic acid 1 mg tablet 1 mg PO DAILY #30 tabs 06/25 hydrochlorothiazide 25 mg tablet 25 mg PO DAILY #30 ta bs 06/25/25 umeclidinium 62.5 mcg-vilanterol 1 inh inhalation OSMAR Y #60 ea 06/25/25 25 mcg/actuation powdr for inhalation (Anoro Ellipta) valsartan 160 mg tablet (Diovan) 160 mg PO DAILY #30 t abs 06/25/25 vitamin B complex 1 cap PO DAILY #30 caps 06/07 05/01 Allergies Allergy/AdvReac Type Severity Reaction Status Date / Time No Known Allergies Allergy Verified 07/18/25 14:56 Review of Systems 2 Const: Reports: fatigue and malaise; Denies: fever(s) or chills Card: Denies: chest pain Resp: Denies: dyspnea GI: Reports: melena; Denies: abdominal pain or hematochezia : Denies: dysuria, urinary frequency or urinary urgency Musc: Denies: neck pain or back pain Skin/Breast: Denies: rash PFSH ED 2 PFSH: Medical History COPD (chronic obstructive pulmonary disease) Essential hypertension Cigarette smoker Surgical History History of tonsillectomy and adenoidectomy History of hernia repair History of foot surgery right and left foot History of tubal ligation Family History Denies family history of Diabetes Dementia Cancer Hypertension Social History Smoking and tobacco/nicotine status: current every day tobacco/nicotine user Second hand smoke exposure: No Alcohol intake: current Alcohol intake frequency: few times a week Alcohol type: beer Substance/Drug Use: unknown Adopted: No Caregiver/support person: No Lives independently: Yes Household members: none Housing: House Marital status: / Number of children: 1 service: No Current occupational status: retired Pets and animals: Yes Do you think of yourself as: Straight/Heterosexual Current gender identity: Female Physical Exam 2 Const: GENERAL APPEARANCE: lethargic ORIENTATION/CONSCIOUSNESS: Yes lethargic HENMT: COMMON NORMALS: normocephalic, atraumatic and hearing grossly normal bilaterally HEAD & SCALP: normocephalic and atraumatic Resp: COMMON NORMALS: normal respiratory effort, No retractions and No use of accessory muscles AUSCULTATION: wheezes Cardio: COMMON NORMALS: regular rate, regular rhythm and No murmurs present (Cardio) RATE: regular rate RHYTHM: regular rhythm GI: COMMON NORMALS: No hepatosplenomegaly present AUSCULTATION: Yes normoactive bowel sounds PALPATION: Yes Tenderness to palpation present (GI), No Guarding due to palpation present (GI) and Yes No hepatosplenomegaly present Extremity: COMMON NORMALS: normal to inspection, capillary refill normal, no clubbing, cyanosis or edema, no calf tenderness and no pedal edema Neuro: SENSORIUM/ORIENTATION: Yes lethargic Skin: COMMON NORMALS: no rashes or lesions noted GENERAL SKIN EXAM: no rashes or lesions noted Course 2 Vital Signs: Vital signs: Vital Signs Temperature 97.5 F L 07/26/25 04:15 Pulse Rate 56 L 07/26/25 06:45 Respiratory Rate 18 07/26/25 06:45 Blood Pressure 92/60 07/26/25 07:00 Pulse Oximetry 100 07/26/25 06:45 Oxygen Delivery Me thod Mechanical Ventil ation 07/26/25 04:15 Oxygen Flow Rate 2 07/24/25 20:15 Fraction of Inspir ed Oxygen 100 07/26/25 04:15 MDM - Weakness Medical Decision Making Medical decision making Social determinants: Patient reports being weak minimal assistance from others no family members available. Difficult time accessing care I reviewed the patient's medical record. I reviewed the patient's current home meds. Alternate historians: None Differential diagnosis: Sepsis upper GI bleed Lab Review: Labs reviewed white count 8.6 hemoglobin 6.1 MCV 108. Potassium 3.3 BUN 30 glucose 127. Carbon dioxide 25. Creatinine 0.7 which is approximately patient's baseline. ALT and AST slightly elevated at 68 and 50 respectively. Flu COVID and RSV are negative. Imaging: Chest x-ray hyperinflation no acute infiltrates no cardiomegaly no effusions Assessment of risk Level of risk: High Hospitalization considerations: Hospitalization for weakness. Upper GI bleed Reexamination: Unchanged Assessment and plan: Patient arrives extremely weak. Rectal exam obviously melanotic stool with sharply heme positive on testing. Hemoglobin low at 6.1 transfusion ordered. Start IV Protonix discussed with hospitalist consult surgery. Orders written for admission. Lab Data 07/26/25 02:08 07/26/25 02:08 Radiology Impressions Chest X-Ray 07/26/25 02:03 IMPRESSION: 1. Endotracheal tube terminates in the trachea. 2. Feeding tube terminates in the stomach. Abdomen/Pelvis CTA 07/26/25 02:25 IMPRESSION: 1. Dependent airspace consolidations, consistent with multilobar pneumonia. Correlate for aspiration. Small bilateral parapneumonic pleural effusions. 2. Dense fluid in the sigmoid colon and rectum, concerning for blood. No CTA evidence of active gastrointestinal bleed. 3. Wall thickening of the urinary bladder, which contains a Bustos catheter. If there is concern for UTI, urinalysis recommended. 4. Moderate wall thickening of the stomach with mucosal hyperemia, concerning for gastritis. Laboratory Results WBC 8.66 10^3/uL (3.29-11.43) 07/24/25 15:17 RBC 1.70 10^6/uL (3.85-5.65) L 07/24/25 15:17 Hgb 6.10 g/dL (11.27-16.99) L* 07/24/25 15:17 Hct 18.5 % (36-47) L* 07/24/25 15:17 MCV 108.8 fl (85-98) H 07/24/25 15:17 MCH 35.9 pg (27-33) H 07/24/25 15:17 MCHC 33.0 g/dL (30-55) 07/24/25 15:17 RDW 12.8 % (12.1-15.1) 07/24/25 15:17 Plt Count 312 10^3/cmm (157-399) 07/24/25 15:17 MPV 9.4 fL (7.4-10.4) 07/24/25 15:17 Neut % (Auto) 80.2 % 07/24/25 15:17 Lymph % (Auto) 15.1 % 07/24/25 15:17 Lyman % (Auto) 3.9 % 07/24/25 15:17 Eos % (Auto) 0.3 % 07/24/25 15:17 Baso % (Auto) 0.2 % 07/24/25 15:17 Neut # (Auto) 6.93 10^3/uL (1.8-7.7) 07/24/25 15:17 Lymph # (Auto) 1.3 10^3/uL (0.8-4.8) 07/24/25 15:17 Lyman # (Auto) 0.3 10^3/uL (0.2-0.9) 07/24/25 15:17 Eos # (Auto) 0.0 10^3/uL (0.0-0.8) 07/24/25 15:17 Baso # (Auto) 0.0 10^3/uL (0.0-0.1) 07/24/25 15:17 Nucleated RBC % (auto) 0 % 07/24/25 15:17 Nucleated RBCs # 0.0 /100WBC 07/24/25 15:17 Sodium 136 mmol/L (136-145) 07/24/25 15:17 Potassium 3.3 mmol/L (3.5-5.1) L 07/24/25 15:17 Chloride 98 mmol/L (98-107) 07/24/25 15:17 Carbon Dioxide 25 mmol/L (22-29) 07/24/25 15:17 Anion Gap 16.3 (5-19) 07/24/25 15:17 BUN 30 mg/dL (8-23) H 07/24/25 15:17 Creatinine 0.7 mg/dL (0.5-0.9) 07/24/25 15:17 GFR Calculation 83.0 mL/min (90-130) L 07/24/25 15:17 Glucose 127 mg/dL (65-115) H 07/24/25 15:17 Calculated Osmolality 290 mOsm/kg (285-295) 07/24/25 15:17 Lactic Acid 1.2 mmol/L (0.5-2.2) 07/24/25 15:17 Calcium 9.0 mg/dL (8.5-10.5) 07/24/25 15:17 Total Bilirubin 0.2 mg/dL (0.15-1.2) 07/24/25 15:17 AST 68 U/L (0-32) H 07/24/25 15:17 ALT 50 U/L (0-33) H 07/24/25 15:17 Alkaline Phosphatase 84 U/L (35-105) 07/24/25 15:17 Creatine Kinase 37 U/L (26-192) 07/24/25 15:17 Total Protein 5.5 g/dL (6.6-8.7) L 07/24/25 15:17 Albumin 3.4 g/dL (3.5-5.2) L 07/24/25 15:17 Globulin 2.1 g/dL (1.3-4.6) 07/24/25 15:17 Influenza A (PCR) Negative (Negative) 07/24/25 15:15 Influenza Type B (PCR) Negative (Negative) 07/24/25 15:15 RSV (PCR) Negative (Negative) 07/24/25 15:15 SARS-CoV-2 (PCR) Negative (Negative) 07/24/25 15:15 Blood Type B Positive 07/24/25 17:03 Rho(D) Type Rh positive 07/24/25 17:03 Antibody Screen Negative 07/24/25 17:03 Crossmatch See Detail 07/24/25 17:03 All radiology interpretation(s) finalized by discharge Discharge Plan Discharge Patient Disposition: Admitted As Inpatient Admit Provider: Grayson Lambert Clinical Impression: Upper GI bleeding, COPD (chronic obstructive pulmonary disease), Acute blood loss anemia Condition: Stable Coding Level of Care Code ED Technician Assistant for Zunilda Price
[2025-07-24 15:29] LABS: Mean Corpuscular HGB Conc 33.0 g/dL (30-55); Mean Corpuscular Hemoglobin 35.9 pg (27-33); Mean Corpuscular Volume 108.8 fl (85-98); Nucleated Red Blood Cells % 0 %; Platelet Count 312 10^3/cmm (157-399); Red Blood Count 1.70 10^6/uL (3.85-5.65); White Blood Count 8.66 10^3/uL (3.29-11.43)
[2025-07-24 15:51] LABS: Alanine Aminotransferase 50 U/L (0-33); Albumin Level 3.4 g/dL (3.5-5.2); Alkaline Phosphatase 84 U/L (35-105); Anion Gap 16.3 (5-19); Aspartate Amino Transferase 68 U/L (0-32); Blood Urea Nitrogen 30 mg/dL (8-23); Calcium 9.0 mg/dL (8.5-10.5); Carbon Dioxide 25 mmol/L (22-29); Chloride 98 mmol/L (98-107); Globulin 2.1 g/dL (1.3-4.6); Glucose 127 mg/dL (65-115); Lactic Sepsis W/Reflex 1.2 mmol/L (0.5-2.2); Osmolality Calculated 290 mOsm/kg (285-295); Potassium 3.3 mmol/L (3.5-5.1); Sodium 136 mmol/L (136-145); Total Protein 5.5 g/dL (6.6-8.7)
[2025-07-24 16:07] LABS: Respiratory Syncytial Virus Ce NEGATIVE (Negative); SARS-CoV-2 PCR NEGATIVE (Negative)
[2025-07-24 16:13] LABS: Hematocrit 18.5 % (36-47); Hemoglobin 6.10 g/dL (11.27-16.99)
--- NOTE | 2025-07-24 18:16 | P.CONIM_ITS ---
Providers/Reason For Consult 2 Consulting Physician/Specialty*: dr weiner gen surg Reason for Consult*: GIB Attending Physician: Grayson Lambert Primary Care Provider: KAREN Bermudez History of Present Illness History of Present Illness Allie Rogers is a 70 year old female whom surgery was consulted melena and hematochezia. Multiple comorbidities. Medications/Allergies Home Medications ?Medication ?Instructions ?Recorded ?Confirmed ?Last Taken ?Type albuterol sulfate 90 mcg/actuation 2 puff inhalation Q 6H PRN 06/25/25 07/25/25 Unknown Rx aerosol inhaler (Ventolin HFA) shortness of breath or wheezing #8.5 grams folic acid 1 mg tablet 1 mg PO DAILY #30 tabs 06/2507/25/25 07/23/25 Rx hydrochlorothiazide 25 mg tablet 25 mg PO DAILY #30 ta bs 06/25/25 07/25/25 07/23/25 Rx umeclidinium 62.5 mcg-vilanterol 1 inh inhalation OSMAR Y #60 ea 06/25/25 07/25/25 07/23/25 Rx 25 mcg/actuation powdr for inhalation (Anoro Ellipta) valsartan 160 mg tablet (Diovan) 160 mg PO DAILY #30 t abs 06/25/25 07/25/25 07/23/25 Rx vitamin B complex 1 cap PO DAILY #30 caps 06/0707/25/25 07/23/25 Rx Allergies Allergy/AdvReac Type Severity Reaction Status Date / Time No Known Allergies Allergy Verified 07/18/25 14:56 PFSH Acute 2 PFSH: Medical History COPD (chronic obstructive pulmonary disease) Essential hypertension Cigarette smoker Surgical History History of tonsillectomy and adenoidectomy History of hernia repair History of foot surgery right and left foot History of tubal ligation Family History Denies family history of Diabetes Dementia Cancer Hypertension Social History Smoking and tobacco/nicotine status: current every day tobacco/nicotine user Second hand smoke exposure: No Alcohol intake: current Alcohol intake frequency: few times a week Alcohol type: beer Substance/Drug Use: unknown Adopted: No Caregiver/support person: No Lives independently: Yes Household members: none Housing: House Marital status: / Number of children: 1 service: No Current occupational status: retired Pets and animals: Yes Do you think of yourself as: Straight/Heterosexual Current gender identity: Female Vitals/I&O/Wt Last Vital Signs Temp 98.1 F 07/24/25 14:55 Pulse 100 07/24/25 17:04 Resp 18 07/24/25 17:04 BP 96/73 07/24/25 17:04 Pulse Ox 95 07/24/25 17:04 O2 Del Method Nasal Cannula 07/24/25 17:04 O2 Flow Rate 2 07/24/25 15:59 Weight last 48 hrs Weight 111 lb Physical Exam 2 Narrative: AOx3 RRR unlabored breathing ra abdomen soft, nt, nd Data 07/25/25 21:10 07/25/25 03:18 Micro: Microbiology 07/24/25 15:37 Blood Culture - Preliminary Blood SPECIMEN COLLECTED 07/24/25 15:35 Blood Culture - Preliminary Blood SPECIMEN COLLECTED A&P Assessment and plan 1. Acute blood loss anemia: 2. Upper GI bleeding: Plan: 70 yo female consulted for melena and hematochezia. Prep is ordered. Planning for EGD/colonoscopy 07/25/25. Discussed with hospitalist who agreed. PDMP PDMP Reviewed: Not Reviewed Coding Level of Care Code 88134 Diagnoses Acute blood loss anemia D62 Upper GI bleeding K92.2
--- NOTE | 2025-07-24 18:18 | PM.MISC ---
Miscellaneous Note Note: Plan for EGD colonoscopy for possible GIB 07/24/25. Prep ordered. Hospitalist agrees.
[2025-07-24] MEDS: pantoprazole 40 mg SDV 80 MG IVP (19:22)
--- NOTE | 2025-07-24 20:09 | P.HP_ITS ---
Providers/Chief Complaint 2 Admitting Physician: Grayson Lambert Primary Care Provider: Siri Rodriguez, KAREN Chief Complaint: WEAKNESS History of Present Illness Allie Rogers is a 70 year old female with a history of chronic obstructive pulmonary disease (COPD), hypertension, cigarette smoking, and alcohol use presents with weakness. She reports dark, black stools (melena) for approximately 24 days and had a small episode of dark, coffee-ground?type emesis the other day. Denies current abdominal pain and denies active vomiting after receiving an antiemetic in the emergency department. She notes dizziness in the setting of low blood pressure. She typically takes two blood-pressure medications every morning but did not take them today; she believes she took them yesterday. She is not on home oxygen. She reports ?a little bit? of sleep apnea and does not use a mask. Lives alone and identifies her son (Jaleel) and sister (Amarilis) as contacts. Had a black bowel movement earlier today, which was ?not as bad? as prior. Review of Systems 2 Const: Denies: fever(s), chills, body aches or malaise ENMT: Denies: throat pain Card: Denies: chest pain, edema, pre-syncope or dyspnea on exertion Resp: Denies: dyspnea, productive cough, change in phlegm color or hemoptysis GI: Reports: coffee ground emesis (2 days ago) and melena; Denies: abdominal pain, nausea, diarrhea, constipation or hematochezia : Denies: flank pain, urinary frequency or hematuria Musc: Denies: back pain, joint swelling or joint redness Skin/Breast: Denies: rash or new lesions Neuro: Denies: headache(s) or confusion Medications/Allergies Home Medications ?Medication ?Instructions ?Recorded ?Confirmed ?Last Taken ?Type albuterol sulfate 90 mcg/actuation 2 puff inhalation Q 6H PRN 06/25/25 07/18/25 Unknown Rx aerosol inhaler (Ventolin HFA) shortness of breath or wheezing #8.5 grams folic acid 1 mg tablet 1 mg PO DAILY #30 tabs 06/2507/18/25 Unknown Rx hydrochlorothiazide 25 mg tablet 25 mg PO DAILY #30 ta bs 06/25/25 07/18/25 Unknown Rx umeclidinium 62.5 mcg-vilanterol 1 inh inhalation OSMAR Y #60 ea 06/25/25 07/18/25 Unknown Rx 25 mcg/actuation powdr for inhalation (Anoro Ellipta) valsartan 160 mg tablet (Diovan) 160 mg PO DAILY #30 t abs 06/25/25 07/18/25 Unknown Rx vitamin B complex 1 cap PO DAILY #30 caps 06/0707/18/25 Unknown Rx Allergies Allergy/AdvReac Type Severity Reaction Status Date / Time No Known Allergies Allergy Verified 07/18/25 14:56 PFSH Acute 2 PFSH: Medical History COPD (chronic obstructive pulmonary disease) Essential hypertension Cigarette smoker Surgical History History of tonsillectomy and adenoidectomy History of hernia repair History of foot surgery right and left foot History of tubal ligation Family History Denies family history of Diabetes Dementia Cancer Hypertension Social History Smoking and tobacco/nicotine status: current every day tobacco/nicotine user Second hand smoke exposure: No Alcohol intake: current Alcohol intake frequency: few times a week Alcohol type: beer Substance/Drug Use: unknown Adopted: No Caregiver/support person: No Lives independently: Yes Household members: none Housing: House Marital status: / Number of children: 1 service: No Current occupational status: retired Pets and animals: Yes Do you think of yourself as: Straight/Heterosexual Current gender identity: Female Vitals/I&O/Wt Last Vital Signs Temp 98.6 F 07/24/25 19:35 Pulse 90 07/24/25 20:04 Resp 16 07/24/25 20:04 BP 98/67 07/24/25 20:04 Pulse Ox 95 07/24/25 20:04 O2 Del Method Room Air 07/24/25 20:04 O2 Flow Rate 2 07/24/25 20:04 07/24/25 07/24/25 07/24/25 06:59 14:59 22:59 Intake Total 0 / 0 Balance 0 / 0 Weight last 48 hrs Weight 50.349 kg Physical Exam 2 Const: COMMON NORMALS: patient oriented x3 and alert GENERAL APPEARANCE: c ooperative ORIENTATION/CONSCIOUSNESS: Yes awake HENMT: COMMON NORMALS: oropharynx normal Neck/C-Spine: COMMON NORMALS: no JVD Resp: COMMON NORMALS: normal respiratory effort and clear to auscultation bilaterally AUSCULTATION: clear to auscultation bilaterally Cardio: COMMON NORMALS: no JVD, regular rhythm, S1 normal heart sound present, S2 normal heart sound present and No murmurs present (Cardio) RHYTHM: regular rhythm HEART SOUNDS: S1 normal heart sound present and S2 normal heart sound present GI: COMMON NORMALS: Normal to inspection, nondistended, normoactive bowel sounds present, Soft to palpation and non-tender PALPATION: Yes Soft to palpation Extremity: COMMON NORMALS: no joint enlargement and no pedal edema Neuro: COMMON NORMALS: patient oriented x3 and moves all extremities S ENSORIUM/ORIENTATION: Yes alert Skin: COMMON NORMALS: no rashes or lesions noted GENERAL SKIN EXAM: no rashes or lesions noted Data 07/24/25 15:17 07/24/25 15:17 Micro: Microbiology 07/24/25 15:37 Blood Culture - Preliminary Blood SPECIMEN COLLECTED 07/24/25 15:35 Blood Culture - Preliminary Blood SPECIMEN COLLECTED A&P Assessment and plan 1. Upper GI bleeding: Suspected upper gastrointestinal bleeding with melena and coffee-ground emesis : Presentation with black stools for ~24 days and recent coffee-ground emesis; dark stools observed in ED. High concern for gastrointestinal source of bleeding. Patient agreeable to evaluation with endoscopy. Reviewed vitals, CBC, CMP, lactic acid, chest x-ray, EKG, ED provider note, discussed with ED provider, discussed with surgeon. 1 unit RBC transfusion. Monitor for risk of transfusion reaction, volume overload. - Continue IV proton pump inhibitor (PPI) twice daily. Octreotide. - NPO except sips of water/ice chips and medications - Surgical consultation - For endoscopy tomorrow (scope planned up and down per surgery) 2. Acute blood loss anemia: Acute blood loss anemia (hemoglobin 6.1) : Severe anemia on complete blood count (CBC) with hemoglobin 6.1, consistent with acute blood loss in the context of GI bleeding. Type and screen performed; transfusion indicated. - Give a unit of O negative blood due to hypotension while awaiting crossmatched blood - Re-check hemoglobin two hours after transfusion Plan: Hypotension : Hemorrhagic shock. Initial BP 73/59 with transient improvement after 1L normal saline, later again low (84/44) with MAP ~54; dizziness reported. Additional bolus given 250 mL. Followed by unit of RBC. - Administer 1L sodium chloride (completed) and give additional 250 mL IV fluids - Give a unit of O negative blood due to hypotension - Monitor blood pressures - Check NICOM (non-invasive cardiac output monitoring) Hypertension : Hold antihypertensives for as hypotension currently. Hold valsartan, HCTZ. COPD : Known history; no home oxygen use reported. No acute COPD symptomsDuoNeb,. Scheduled and as needed Alcohol use : Patient reports beer consumption; counseled on risks including gastritis and potential for cirrhosis. - Discuss abstinence from alcohol - Monitor for any signs of withdrawal Tobacco use : Active cigarette smoking; patient expressed cravings while hospitalized. - Encourage smoking cessation - Discuss smoking cessation for five minutes - Provide nicotine patches and lozenges for withdrawal Sleep apnea : Patient reports ?a little bit? of sleep apnea; does not use a mask. Mild transaminitis (AST 68, ALT 50) : Mild elevation of liver enzymes on comprehensive metabolic panel; bilirubin and alkaline phosphatase normal. Hospitalization bundle : Patient requires ICU-level care for ongoing GI bleeding with hypotension and severe anemia. - ICU admission - Sequential compression devices (SCD) for deep vein thrombosis (DVT) prophylaxis PDMP PDMP Reviewed: Not Reviewed Attestations 2 Medical Necessity Statement*: Admission over 2 midnights anticipated for assessment management of upper GI bleeding, acute blood loss anemia, hemorrhagic shock, additional comorbidities as above. Coding Level of Care Code Critical Care >/= 30 minutes Critical care time (in minutes): 40 The high probability of a clinically significant, sudden or life threatening deterioration, as referenced in this documentation, required my full and direct attention, intervention and personal management. The critical care time shown is in addition to time spent performing any reported separately billable procedures and includes the following: [x] Data and vital sign review and interpretation [x ] Patient assessment, examination and intervention [x] Medication orders and management [x] Patient/Family updates as able [x] Care Coordination and Documentation. Diagnoses Upper GI bleeding K92.2 Acute blood loss anemia D62
[2025-07-24] MEDS: octreotide 500 MCG in sodium chloride 0.9% (100 ml) 100 ML 10.1 MCG IV (21:35)
--- NOTE | 2025-07-24 22:00 | PC.NURSE ---
Physician Communication Patient complaining of severe headache; no PRN pain medication ordered. 1 unit of PRBCs finished administering with no repeat labs ordered. Furthermore, scheduled dulcolax for 1400 and magnesium citrate ordered for 1814 not administered prior to arrival on unit. Dr. Easton notified; orders received to administer another unit of PRBCs, contact Dr. Bailey regarding dulcolax as well as magnesium citrate while other orders to be placed by physician.
[2025-07-24] MEDS: D5-NS 0.45% + KCL 20 mEq 20 MEQ/1,000 ML BAG 125 MEQ IV (22:16)
--- NOTE | 2025-07-24 22:36 | PC.NURSE ---
Mag Citrate/Dulcolax Patient arrived to unit at 2116. Dulcolax ordered for 1400 today and magnesium citrate ordered for 1814, both not administered. Dr. Bailey notified; order received to not administer medications. Scope as well as bowel prep to be rescheduled.
[2025-07-24] MEDS: oxyCODONE 5 mg IR Tab/Cap PO (23:09)
[2025-07-25] VITALS (123 sets, daily range): BP systolic 62–143; BP diastolic 47–87; PULSE 64–141; RESP 12–39; TEMP 36.5–37; O2SAT 91–100
[2025-07-25 00:29] LABS: Glucose Urine UA Negative (Normal); Nitrate Urine Positive (Negative); Specific Gravity, Urine 1.020 (1.005-1.030)
[2025-07-25 00:34] LABS: Add Urine Microscopic? YES
--- NOTE | 2025-07-25 00:34 | PC.NURSE ---
Labs Labs ordered for 2218. unit of blood administering. Order received from Dr. Easton to obtain labwork 1 hour after blood completion.
[2025-07-25] MEDS: ondansetron 2 mg/ML SDV 2 mL 4 MG IVP ×3 (02:29→21:58)
--- NOTE | 2025-07-25 03:00 | PC.NURSE ---
UA Dr. Easton notified of UA results.
--- NOTE | 2025-07-25 03:59 | PC.NURSE ---
BP Patient's blood pressure trending down, currently 80/[address] Easton notified; order received to administer 1L NS IV once as well as transfuse 1 unit PRBCs. Morning labs pending and discussed. Verification received to administer blood prior to lab results.
[2025-07-25 04:00] LABS: Hematocrit 22.7 % (36-47); Hemoglobin 7.30 g/dL (11.27-16.99); Mean Corpuscular HGB Conc 32.2 g/dL (30-55); Mean Corpuscular Hemoglobin 30.7 pg (27-33); Mean Corpuscular Volume 95.4 fl (85-98); Nucleated Red Blood Cells % 0 %; Platelet Count 192 10^3/cmm (157-399); Red Blood Count 2.38 10^6/uL (3.85-5.65); White Blood Count 4.92 10^3/uL (3.29-11.43)
[2025-07-25 04:23] LABS: Anion Gap 9.4 (5-19); Blood Urea Nitrogen 27 mg/dL (8-23); Calcium 7.5 mg/dL (8.5-10.5); Carbon Dioxide 26 mmol/L (22-29); Chloride 104 mmol/L (98-107); Glucose 203 mg/dL (65-115); Osmolality Calculated 293 mOsm/kg (285-295); Potassium 3.4 mmol/L (3.5-5.1); Sodium 136 mmol/L (136-145)
[2025-07-25] MEDS: pantoprazole 40 mg SDV IVP ×2 (04:33→17:16)
--- NOTE | 2025-07-25 05:20 | PC.NURSE ---
Fluids/tylenol Patient's glucose level 221, no history of diabetes. Furthermore, patient's potassium level 3.4. Dr. Easton contacted and orders placed by physician for change of maintenance fluid to NS w/ 40meq KCL. Patient complaining of headache; one dose of tylenol administered prior. AST/ALT mildly elevated with no recheck. Verification received from Dr. Easton to administer tylenol Q4H PRN.
[2025-07-25 05:54] LABS: Magnesium 1.8 mg/dL (1.7-2.3)
[2025-07-25] MEDS: sodium chlor 0.9% + KCl 40 mEq 40 MEQ/1,000 ML BAG 125 MEQ IV ×2 (06:23→15:00)
[2025-07-25] MEDS: octreotide 500 MCG in sodium chloride 0.9% (100 ml) 100 ML 10.1 MCG IV ×2 (06:25→17:16)
--- NOTE | 2025-07-25 06:40 | PC.NURSE ---
Nausea/BP Patient complaining of nausea; next dose of zofran due at 1030. Additionally, patient's blood pressure remaining decreased, MAP ranging from 60-64. Dr. Easton contacted; orders received for levophed drip as well as 0.5 mg ativan IVP PRN Q4H for nausea.
[2025-07-25] MEDS: LORazepam 2 mg/mL INJ 1 mL 0.5 MG IVP ×4 (07:22→22:44)
[2025-07-25] MEDS: norepinephrine 4 MG/250 ML BAG 7.5 MG IV (07:28)
--- NOTE | 2025-07-25 08:40 | PC.SOCIAL ---
IMM Updated Updated pt on IMM. No questions voiced. Provided pt a copy. Initialed, dated, & timed a copy & placed in chart.
[2025-07-25 09:34] LABS: Hemoglobin 9.00 g/dL (11.27-16.99)
[2025-07-25] MEDS: magnesium citrate Btl 296 mL PO ×2 (11:24→19:52)
--- NOTE | 2025-07-25 13:16 | P.PN_ITS ---
Subjective 2 Subjective: Prep ordered but given No jenniffer episodes of melena or hematochezia overnight Vitals/I&O/Wt Last Vital Signs Temp 98.1 F 07/25/25 07:15 Pulse 66 07/25/25 12:00 Resp 25 H 07/25/25 12:00 BP 127/70 07/25/25 12:00 Pulse Ox 100 07/25/25 12:00 O2 Del Method Room Air 07/25/25 12:00 O2 Flow Rate 2 07/24/25 20:15 07/24/25 07/25/25 07/25/25 22:59 06:59 14:59 Intake Total 350 / 350 2451 / 2801 830 / 830 Output Total 255 / 255 Balance 350 / 350 2196 / 2546 830 / 830 Weight last 48 hrs Weight 119 lb 0.794 oz Weight 110 lb 3.698 oz Weight 111 lb Physical Exam 2 Narrative: AOx3 rrr unlabored breathing ra abdomen soft, nt, nd Urinary Catheter Management: Bustos: Cath Placed During This Visit: yes Reason for Continuing Indwelling Catheter: Accurate Measurement of Urinary Output in Critically Ill Patients Urinary Catheter Date of Insertion: 07/25/25 Urinary Catheter Time of Insertion: 00:22 Data 07/25/25 21:10 07/25/25 03:18 Micro: Microbiology 07/24/25 15:37 Blood Culture - Preliminary Blood SPECIMEN COLLECTED 07/24/25 15:35 Blood Culture - Preliminary Blood SPECIMEN COLLECTED A&P Assessment and plan 1. Acute blood loss anemia: 2. Upper GI bleeding: Plan: 70yo female whom surgery was consulted for GIB. Prep was ordered but not given. Will order prep again and plan for EGD colonoscopy 07/26/25. Discussed with hospitalist. PDMP PDMP Reviewed: Not Reviewed Attestations 2 Medical Necessity Statement*: NA Coding Level of Care Code Acute Code for Chg Fwd Diagnoses Acute blood loss anemia D62 Upper GI bleeding K92.2
--- NOTE | 2025-07-25 20:14 | P.PN_ITS ---
Subjective 2 Subjective: Denies pain or discomfort this morning. Had additional melanotic stool with prep for colonoscopy. Vitals/I&O/Wt Last Vital Signs Temp 97.7 F 07/25/25 19:45 Pulse 72 07/25/25 19:45 Resp 20 H 07/25/25 19:45 BP 125/79 07/25/25 19:45 Pulse Ox 100 07/25/25 19:45 O2 Del Method Room Air 07/25/25 18:00 O2 Flow Rate 2 07/24/25 20:15 07/25/25 07/25/25 07/25/25 06:59 14:59 22:59 Intake Total 2451 / 2801 1830 / 1830 341 / 2171 Output Total 255 / 255 Balance 2196 / 2546 1830 / 1830 341 / 2171 Weight last 48 hrs Weight 54 kg Weight 50 kg Weight 50.349 kg Physical Exam 2 Const: COMMON NORMALS: patient oriented x3 and alert GENERAL APPEARANCE: c ooperative ORIENTATION/CONSCIOUSNESS: Yes awake HENMT: COMMON NORMALS: oropharynx normal Neck/C-Spine: COMMON NORMALS: no JVD Resp: COMMON NORMALS: normal respiratory effort and clear to auscultation bilaterally AUSCULTATION: clear to auscultation bilaterally Cardio: COMMON NORMALS: no JVD, regular rhythm, S1 normal heart sound present, S2 normal heart sound present and No murmurs present (Cardio) RHYTHM: regular rhythm HEART SOUNDS: S1 normal heart sound present and S2 normal heart sound present GI: COMMON NORMALS: Normal to inspection, nondistended, normoactive bowel sounds present, Soft to palpation and non-tender PALPATION: Yes Soft to palpation Extremity: COMMON NORMALS: no joint enlargement and no pedal edema Neuro: COMMON NORMALS: patient oriented x3 and moves all extremities S ENSORIUM/ORIENTATION: Yes alert Skin: COMMON NORMALS: no rashes or lesions noted GENERAL SKIN EXAM: no rashes or lesions noted Urinary Catheter Management: Bustos: Cath Placed During This Visit: yes Reason for Continuing Indwelling Catheter: Accurate Measurement of Urinary Output in Critically Ill Patients Urinary Catheter Date of Insertion: 07/25/25 Urinary Catheter Time of Insertion: 00:22 Data 07/25/25 09:21 07/25/25 03:18 Micro: Microbiology 07/24/25 15:37 Blood Culture - Preliminary Blood NEGATIVE TO DATE 07/24/25 15:35 Blood Culture - Preliminary Blood NEGATIVE TO DATE A&P Assessment and plan 1. Upper GI bleeding: Received 3 units RBC transfusion. Discussed with the surgeon. Plan for EGD tomorrow, and undergoing prep for colonoscopy. Repeat hemoglobin. Continue IV PPI. Octreotide. Monitor for risk of transfusion reaction, volume overload. - Continue IV proton pump inhibitor (PPI) twice daily. Octreotide. -Was advanced to clear liquids today - Surgical consultation - For endoscopy tomorrow (scope planned up and down per surgery) 2. Acute blood loss anemia: Hemoglobin up to 9 after 3 units. Recheck. Plan: Hypotension : Resolved. Hypertension : Hold antihypertensives for as hypotension currently. Hold valsartan, HCTZ. Reassess. COPD : Known history; no home oxygen use reported. No acute COPD symptomsDuoNeb,. Scheduled and as needed Alcohol use : Patient reports beer consumption; counseled on risks including gastritis and potential for cirrhosis. - Discuss abstinence from alcohol - Monitor for any signs of withdrawal Tobacco use : Active cigarette smoking; patient expressed cravings while hospitalized. - Encourage smoking cessation - Discuss smoking cessation for five minutes - Provide nicotine patches and lozenges for withdrawal Sleep apnea : Patient reports ?a little bit? of sleep apnea; does not use a mask. Mild transaminitis (AST 68, ALT 50) : Mild elevation of liver enzymes on comprehensive metabolic panel; bilirubin and alkaline phosphatase normal. Mild hypokalemia: Replaced. Recheck chemistry. Will give magnesium and recheck level. Hospitalization bundle : Patient requires ICU-level care for ongoing GI bleeding with hypotension and severe anemia. - ICU admission - Sequential compression devices (SCD) for deep vein thrombosis (DVT) prophylaxis PDMP PDMP Reviewed: Not Reviewed Attestations 2 Medical Necessity Statement*: Continue for assessment management of upper GI bleeding. and High MDM includes amount and/or complexity of data reviewed/ordered [ previous or external records, resulted lab(s)/test(s), ordered lab(s)/test(s) and other healthcare professional discussion] and described risk of complication, morbidity or mortality of management as documented Diagnoses Upper GI bleeding K92.2 Acute blood loss anemia D62
[2025-07-25 21:30] LABS: Hemoglobin 9.70 g/dL (11.27-16.99)
[2025-07-25] MEDS: magnesium sulfate premix 2 GM/50 ML PIGGYBACK IV (22:00)
--- NOTE | 2025-07-25 23:39 | PM.MISC ---
Miscellaneous Note Note: Called about SBP 50s after episode of hematemesis. At around 2320 SBP 89/50 at bedside. Responding to crystalloid. 2 u RBCs ordered but not given yet. Dr. Easton placed a central line in the right groin. Waiting for staff to start emergent EGD/colonoscopy
--- NOTE | 2025-07-25 23:45 | P.PN_ITS ---
Subjective 2 Subjective: Called to evaluate 70-year-old female with upper GI bleeding she vomited bright red blood. Patient is alert and oriented x 3. Blood pressure dropped to 50 she was treated with Trendelenburg and IV fluid bolus. 2 units packed red cells ordered which are being crossmatched. Last hemoglobin 9.7. Patient consented to triple-lumen catheter and due to emergent situation plan is for right femoral triple-lumen catheter Vitals/I&O/Wt Last Vital Signs Temp 97.7 F 07/25/25 19:45 Pulse 75 07/25/25 20:00 Resp 21 H 07/25/25 20:00 BP 125/79 07/25/25 19:45 Pulse Ox 96 07/25/25 20:00 O2 Del Method Room Air 07/25/25 20:00 O2 Flow Rate 2 07/24/25 20:15 07/25/25 07/25/25 07/26/25 14:59 22:59 06:59 Intake Total 1830 / 1830 341 / 2171 Balance 1830 / 1830 341 / 2171 Weight last 48 hrs Weight 54 kg Weight 50 kg Weight 50.349 kg Physical Exam 2 Narrative: General Well-developed female complaining of abdominal pain mouth is covered with old blood CV regular tachycardic rhythm Lungs clear to auscultation bilaterally Abdomen diminished bowel tones soft Calves no tenderness cords pretrip edema Radial pulses 1+ Femoral pulses 2+. Urinary Catheter Management: Bustos: Cath Placed During This Visit: yes Reason for Continuing Indwelling Catheter: Accurate Measurement of Urinary Output in Critically Ill Patients Urinary Catheter Date of Insertion: 07/25/25 Urinary Catheter Time of Insertion: 00:22 Data 07/25/25 21:10 07/25/25 03:18 Micro: Microbiology 07/24/25 15:37 Blood Culture - Preliminary Blood NEGATIVE TO DATE 07/24/25 15:35 Blood Culture - Preliminary Blood NEGATIVE TO DATE A&P Assessment and plan 1. Upper GI bleeding: Additional 2 units of blood ordered and saline bolus plus Levophed. I am going to place a right femoral triple-lumen catheter emergently. The patient updated regarding her need for emergent EGD and potentially emergent partial gastrectomy. Patient voices understanding. Dr. Bailey was contacted but did not hear his phone for some time. I involved house soup and we did ultimately reach him and he is now at bedside along with Dr. Pantoja from anesthesia. Patient will go down to the GI Lab 2. Acute blood loss anemia: Hemoglobin up to 9 after 3 units. Acute bleeding additional 2 units ordered PDMP PDMP Reviewed: Not Reviewed Attestations 2 Medical Necessity Statement*: Patient is acutely bleeding from upper GI source now also passing red blood from the rectum. Emergent EGD needed and patient will need greater than 2 midnights in the ICU Coding Level of Care Code Critical Care >/= 30 minutes Diagnoses Upper GI bleeding K92.2 Acute blood loss anemia D62 Time Spent (min) 41 Comment [id number] separate from triple-lumen catheter
--- NOTE | 2025-07-25 23:48 | PM.MISC ---
Miscellaneous Note Note: Discussed risks and benefits and patient agrees to proceed with EGD and colonoscopy, possible hemostasis. Patient understands the risks include aspiration, iatrogenic perforation, worsening of GIB upon intervention.
--- NOTE | 2025-07-25 23:52 | PM.ACPR ---
Procedure/Consent Procedure Narrative: Patient placed in supine position. If right femoral pulse easily identified. I flushed the ports on the triple-lumen catheter and shown that it was working well. Patient was prepped with ChloraPrep x 3 and drape was put in place. I anesthetized medial to the pulsing right femoral and used 3 cc of lidocaine 1%. I was able to find the femoral vein. The introducer needle was passed into the vessel based on landmarks and guidewire was threaded. Skin dona was made and vessel was dilated. Triple-lumen catheter was passed over the wire and guidewire removed. All ports were aspirated and flushed and then I saline wash the blood away dried prepped with ChloraPrep dried again and sutured the line in place utilizing a Biopatch. Sterile dressing was placed line is ready for use Acute Procedures Central Line Placement: Left Femoral: Time out performed: Yes Patient placed on monitor/pulse ox: Yes prep: mask, gown, gloves and other (cap) Central line prep: other (chloraprep x 3) Local anesthesia used: lidocaine 1% Amount of anesthesia used (ml): 3 Ultrasound used for placement: No Central line lumen inserted: triple Post procedure: sutured in place, good blood return, all ports aspirated, flushed, capped and sterile dressing applied (After cleaned with saline dried then prepped again with ChloraPrep and dried and then dressed) Post procedure x-ray: other (Not applicable) Patient tolerated procedure: well and no complications Complications: none
--- NOTE | 2025-07-25 23:54 | PC.NURSE ---
Patient's son, Jaleel has been notified of patient's decline, updated of patient bleeding and being taken to GI LAB for double scope. Jaleel said he does not have a ride to the hospital at this time but he would like to be kept updated. Jaleel has been notified that the patient is losing alot of blood and possible could occur. Jaleel verbalizes severity of the situation.
[2025-07-26] VITALS (29 sets, daily range): BP systolic 92–157; BP diastolic 60–102; PULSE 56–98; RESP 18–33; TEMP 35.8–36.4; O2SAT 89–100
--- NOTE | 2025-07-26 00:05 | P.MISC_ITS ---
Miscellaneous Note Note: Son updated
--- NOTE | 2025-07-26 00:05 | PM.MISC ---
Miscellaneous Note Note: Son updated
--- NOTE | 2025-07-26 01:03 | PM.MISC ---
Miscellaneous Note Note: Diffuse gastritis with spontaneous bleeding. Large amounts of clot washed out from stomach. No focal bleeding source. Dr. Easton transferring for GI evaluation.
[2025-07-26] MEDS: propofol 1,000 MG/100 ML INJ 1.62 MG IV (01:15)
--- NOTE | 2025-07-26 01:19 | ANES.PREANE2 ---
Pre-Anesthetic Assessment Height/Weight: Height 5 ft 8 in Weight 119 lb 0.794 oz Temp Pulse Resp BP Pulse Ox O2 Del Method O2 Flow Rate 97.7 F 75 33 H 125/79 94 Room Air 2 07/25/25 19:45 07/25/25 20:00 07/26/25 01:15 07/25/25 19:45 07/26/25 01:15 07/25/25 20:00 07/24/25 20:15 FiO2 100 07/26/25 01:15 Preop Diagnosis: Acute GI bleed Operation Date: 07/26/25 09:15 Proposed Procedures p EGD(Not Applicable) - Waqas Bailey MD s Colonoscopy(Not Applicable) - Waqas Bailey MD Was Beta Mesha taken within 24 hours: N/A Was Clonidine taken within 24 hours: N/A Social Alcohol and Tobacco Says she likes beer Exam alert, oriented x 3 and clear to auscultation bilaterally Tachycardic and hypotensive Airway Submandibular: within normal limits Cervical ROM: within normal limits Mallampati: Class III Comments: Comments: Edentulous, super dry mouth Anesthetic Plan ASA status: 4E Anesthesia: General Other: Patient was initially admitted on the evening of 07/24/2025 for acute GI bleed. Patient has received 3 units PRBCs prior to my arrival this evening Upon arrival patient is alert and oriented x 3 with profuse bleeding from the rectum. Per nursing staff patient had been throwing up bright red blood earlier this evening Patient denies any issues with anesthesia in the past History of hypertension on HCTZ and valsartan. Last hemoglobin at 2109 showing 9.7, K+ 3.4 More bloated requested in ICU prior to departure to GI Central line in place in the groin Levophed started Patient admits to smoking and drinking regularly Discussed with patient that she will most likely remain intubated following procedure and she consents Plan for GETA with RSI Medications/Allergies Home Medications ?Medication ?Instructions ?Recorded ?Confirmed ?Last Taken ?Type albuterol sulfate 90 mcg/actuation 2 puff inhalation Q6H PRN 06/25/25 07/25/25 Unknown Rx aerosol inhaler (Ventolin HFA) shortness of breath or wheezing #8.5 grams folic acid 1 mg tablet 1 mg PO DAILY #30 tabs 06/25/25 07/25/2507/23/25 Rx hydrochlorothiazide 25 mg tablet 25 mg PO DAILY #30 tabs 06/25/25 07/25/25 07/23/25 Rx umeclidinium 62.5 mcg-vilanterol 1 inh inhalation DAILY #60 ea 06/25/25 07/25/25 07/23/25 Rx 25 mcg/actuation powdr for inhalation (Anoro Ellipta) valsartan 160 mg tablet (Diovan) 160 mg PO DAILY #30 tabs 06/25/25 07/25/25 07/23/25 Rx vitamin B complex 1 cap PO DAILY #30 caps 06/25/25 07/25/25 07/23/25 Rx Allergies Allergy/AdvReac Type Severity Reaction Status Date / Time No Known Allergies Allergy Verified 07/18/25 14:56 Current Medications Generic Name Dose Route Start Last Admin Trade Name Freq PRN Reason Stop Dose Admin Acetaminophen 650 mg 07/24/25 22:32 07/25/25 18:43 Acetaminophen 325 Mg Tablet PO 650 mg Q4H PRN Administration MILD PAIN OR INCREASE TEMP Albuterol/Ipratropium 3 ml 07/25/25 02:00 07/25/25 20:43 Ipratropium-Albuterol 3 Ml Neb INHALATION 3 ml Q6H.RESP BOB Administration Octreotide Acetate 500 mcg/ 101 mls @ 10.1 mls/hr 07/24/25 20:30 07/25/25 17:16 Sodium Chloride IV 50 mcg/hr .Q10H BOB 10.1 mls/hr 50 MCG/HR Administration Norepinephrine Bitartrate 4 mg in 250 mls @ 0 mls/hr 07/25/25 07:00 07/25/25 07:28 Levophed IV 0 mcg/min .Q0M BOB 0 mls/hr Protocol Titration Per Protocol Lorazepam 0.5 mg 07/25/25 06:31 07/25/25 22:44 Lorazepam 2 Mg/Ml Inj 1 Ml IVP 0.5 mg Q4H PRN Administration NAUSEA Nicotine 1 patch 07/25/25 20:30 07/25/25 22:01 Nicotine 21 Mg Patch TRANSDERMA 1 patch DAILY BOB Administration Ondansetron HCl 4 mg 07/24/25 23:37 07/25/25 21:58 Ondansetron 2 Mg/Ml Sdv 2 Ml IVP 4 mg Q8H PRN Administration vomiting, or N/V if npo Oxycodone HCl 5 mg 07/24/25 22:32 07/24/25 23:09 Oxycodone 5 Mg Ir Tab/Cap PO 5 mg Q4H PRN Administration MODERATE PAIN Pantoprazole Sodium 40 mg 07/25/25 05:00 07/25/25 17:16 Pantoprazole 40 Mg Sdv IVP 40 mg Q12H BOB Administration PFSH Anesthesia Medical History COPD (chronic obstructive pulmonary disease) Essential hypertension Cigarette smoker Surgical History History of tonsillectomy and adenoidectomy History of hernia repair History of foot surgery right and left foot History of tubal ligation Family History Denies family history of Diabetes Dementia Cancer Hypertension Social History Smoking and tobacco/nicotine status: current every day tobacco/nicotine user Second hand smoke exposure: No Alcohol intake: current Alcohol intake frequency: few times a week Alcohol type: beer Substance/Drug Use: unknown Adopted: No Caregiver/support person: No Lives independently: Yes Household members: none Housing: House Marital status: / Number of children: 1 service: No Current occupational status: retired Pets and animals: Yes Do you think of yourself as: Straight/Heterosexual Current gender identity: Female Data Anesthesia 07/25/25 21:10 07/25/25 03:18 Short CBC 07/24/25 07/25/25 07/25/25 Range/Units 15:17 03:18 09:21 WBC 8.66 4.92 (3.29-11.43) 10^3/uL Hgb 6.10 L* 7.30 L 9.00 L (11.27-16.99) g/dL Hct 18.5 L* 22.7 L (36-47) % MCV 108.8 H 95.4 D (85-98) fl Plt Count 312 192 D (157-399) 10^3/cmm Neut % (Auto) 80.2 55.1 % Neut # (Auto) 6.93 2.71 (1.8-7.7) 10^3/uL 07/25/25 Range/Units 21:10 WBC (3.29-11.43) 10^3/uL Hgb 9.70 L (11.27-16.99) g/dL Hct (36-47) % MCV (85-98) fl Plt Count (157-399) 10^3/cmm Neut % (Auto) % Neut # (Auto) (1.8-7.7) 10^3/uL BMP 07/24/25 07/25/25 15:17 03:18 Sodium 136 136 Potassium 3.3 L 3.4 L Chloride 98 104 Carbon Dioxide 25 26 BUN 30 H 27 H Creatinine 0.7 0.8 Glucose 127 H 203 H Calcium 9.0 7.5 L Cardiac Enzymes 07/24/25 Range/Units 15:17 Creatine Kinase 37 (26-192) U/L Liver Function 07/24/25 Range/Units 15:17 Total Bilirubin 0.2 (0.15-1.2) mg/dL AST 68 H (0-32) U/L ALT 50 H (0-33) U/L Alkaline Phosphatase 84 (35-105) U/L Albumin 3.4 L (3.5-5.2) g/dL Urine 07/25/25 Range/Units 00:20 Urine Color Rogers A (Yellow) Urine Appearance Cloudy A (CLEAR) Urine pH 5.5 (5-7) Ur Specific Hurley 1.020 (1.005-1.030) Urine Protein Negative (Negative) Urine Glucose (UA) Negative (Normal) Urine Ketones Trace (Negative) Urine Nitrate Positive A (Negative) Urine Bilirubin Negative (Negative) Ur Leukocyte Esterase 1+ A (Negative) Urine RBC 0-2 (0-2) /hpf Urine WBC 6-10 (0-5) /hpf Blood Bank 07/24/25 07/24/25 16:20 17:03 Blood Type Cancelled B Positive Rho(D) Type Cancelled Rh positive Antibody Screen Cancelled Negative COVID Results 07/24/25 15:15 SARS-CoV-2 (PCR) Negative Microbiology 07/24/25 15:37 Blood Culture - Preliminary Blood NEGATIVE TO DATE 07/24/25 15:35 Blood Culture - Preliminary Blood NEGATIVE TO DATE
[2025-07-26] MEDS: fentaNYL 1,000 MCG/100 ML BAG 2.5 MCG IV (01:33)
--- NOTE | 2025-07-26 01:40 | PC.NURSE ---
GI Lab/Blood Around 2245, patient noted to have large amounts of bright red emesis. Dr. Easton on unit and notified. Shortly after emesis, patient's blood pressure decreased to 62/47 MAP 52. Orders received to administer 2 units of PRBCs per protocol, 1 LNS bolus, as well as 50 mcg octreotide IVP once. Attempted communication with Dr. Bailey with no success. Dr. Easton notified of lack of IV access for levophed. Right femoral central line placed by Dr. Easton. Following central line placement, Dr. Pantoja at bedside. Copious amounts of jenniffer blood noted to be pouring from rectum. Blood pressure unable to be measured briefly while awaiting blood from blood bank. Order received to initiate levophed at 6 mcg/min. Once blood available, orders received to rapidly transfuse the two units of blood. Blood rapidly transfused. Patient left for GI lab at 2355. During GI lab procedure, order received to rapidly transfuse a third unit. Total of three units of PRBCs rapidly transfused. Returned to ICU at 0107. Patient's temperature 96.4F axillary. Luana curiel applied and Dr. Easton notified.
--- NOTE | 2025-07-26 02:03 | XRR_ITS ---
PROCEDURE INFORMATION: Exam: XR Chest Exam date and time: 07/26/2025 2:05 AM Age: 70 years old Clinical indication: Device placement; Ett placement (vent status); Check S/P ett and og placement; Additional info: Et/ng tube placements TECHNIQUE: Imaging protocol: Radiologic exam of the chest. Views: 1 view. COMPARISON: CR XR chest 1V portable [id number] 07/24/2025 3:06 PM FINDINGS: Tubes, catheters and devices: Endotracheal tube terminates in the trachea. Feeding tube terminates in the stomach. Lungs: Unremarkable. No consolidation. Pleural spaces: Unremarkable. No pleural effusion. No pneumothorax. Heart/Mediastinum: Cardiomegaly under the Vasculature: Calcifications of the aorta. Bones/joints: Unremarkable. XR/XR chest 1V [id number] IMPRESSION: 1. Endotracheal tube terminates in the trachea. 2. Feeding tube terminates in the stomach.
[2025-07-26] MEDS: midazolam 1 mg/mL INJ 2 mL 2 MG IVP (02:05)
[2025-07-26 02:14] LABS: Hematocrit 35.1 % (36-47); Hemoglobin 11.20 g/dL (11.27-16.99); Mean Corpuscular HGB Conc 31.9 g/dL (30-55); Mean Corpuscular Hemoglobin 29.6 pg (27-33); Mean Corpuscular Volume 92.9 fl (85-98); Nucleated Red Blood Cells % 0 %; Platelet Count 155 10^3/cmm (157-399); Red Blood Count 3.78 10^6/uL (3.85-5.65); White Blood Count 8.12 10^3/uL (3.29-11.43)
[2025-07-26 02:25] LABS: INR 1.04 (0.8-1.2); Prothrombin Time 14.30 SECONDS (12.1-14.9)
--- NOTE | 2025-07-26 02:25 | PC.NURSE ---
Sedation Upon arrival back in ICU, orders received for propofol drip. Propofol titrated per OCT. Despite increased doses, patient anxious and restless on ventilator. Further orders received for fentanyl drip and to administer a one time propofol bolus of 20 mg IV. Bolus administered. Fentanyl started per OCT. Patient still agitated and overbreathing the ventilator. Dr. Easton on unit; verbal order received for 2 mg versed IVP once. Physician to place order for versed drip.
--- NOTE | 2025-07-26 02:25 | CTR_ITS ---
PROCEDURE INFORMATION: Exam: CTA Abdomen and Pelvis With Contrast Exam date and time: 07/26/2025 2:54 AM Age: 70 years old Clinical indication: Other: Hematemeis/lower gi bleed; Prior surgery; Surgery date: 6+ months; Surgery type: Hernia repair. Tubal; Significant hematemeis with active lower gi bleed. Full gi tract scope performed earlier this a. M. Unable to identify and source of bleeding. Intubated with og, keith, and RT femoral central line in place. ; Additional info: Look for source of stomach bleeding, ugi blood TECHNIQUE: Imaging protocol: Computed tomographic angiography of the abdomen and pelvis with contrast. Exam focused on the arteries. 3D rendering (Not supervised by radiologist): MIP and/or 3D reconstructed images were created by the technologist. Radiation optimization: All CT scans at this facility use at least one of these dose optimization techniques: automated exposure control; mA and/or kV adjustment per patient size (includes targeted exams where dose is matched to clinical indication); or iterative reconstruction. Contrast material: OMNI 350; Contrast volume: 100 ml; Contrast route: INTRAVENOUS (IV); COMPARISON: CT lung screening [id number] 10/12/2023 8:55 AM RADIATION DOSE METRICS: Total DLP (mGy-cm): 807.8 FINDINGS: Lungs: Dependent airspace consolidations, consistent with multilobar pneumonia. Correlate for aspiration. Small bilateral parapneumonic pleural effusions. Aorta: Atherosclerotic changes of the aorta. Celiac and mesenteric arteries: No occlusion or significant stenosis. Renal arteries: No occlusion or significant stenosis. Right iliac arteries: No occlusion or significant stenosis. Left iliac arteries: No occlusion or significant stenosis. Liver: No mass. Gallbladder and biliary ducts: Unremarkable. No calcified stones. No ductal dilation. Pancreas: Unremarkable. No mass. No ductal dilation. Spleen: Unremarkable. No splenomegaly. Adrenal glands: Unremarkable. No mass. Kidneys and ureters: Bilateral renal cysts measuring up to 3.9 cm in the left kidney. Stomach and bowel: Dense fluid in the sigmoid colon and rectum, concerning for blood. No CTA evidence of active gastrointestinal bleed. Moderate wall thickening of the stomach with mucosal hyperemia, concerning for gastritis. Appendix: No evidence of appendicitis. Intraperitoneal space: Unremarkable. No free air. No significant fluid collection. Lymph nodes: Unremarkable. No enlarged lymph nodes. Urinary bladder: Wall thickening of the urinary bladder, which contains a Keith catheter. If there is concern for UTI, urinalysis recommended. Reproductive: Unremarkable as visualized. Bones/joints: Degenerative changes of the spine. Soft tissues: Anasarca. CT/CT angio abdomen pelvis [id number] IMPRESSION: 1. Dependent airspace consolidations, consistent with multilobar pneumonia. Correlate for aspiration. Small bilateral parapneumonic pleural effusions. 2. Dense fluid in the sigmoid colon and rectum, concerning for blood. No CTA evidence of active gastrointestinal bleed. 3. Wall thickening of the urinary bladder, which contains a Keith catheter. If there is concern for UTI, urinalysis recommended. 4. Moderate wall thickening of the stomach with mucosal hyperemia, concerning for gastritis.
[2025-07-26] MEDS: midazolam hcl 100 MG/100 ML BAG IV (02:31)
[2025-07-26 02:34] LABS: Alanine Aminotransferase 27 U/L (0-33); Albumin Level 3.0 g/dL (3.5-5.2); Alkaline Phosphatase 54 U/L (35-105); Anion Gap 10.5 (5-19); Aspartate Amino Transferase 26 U/L (0-32); Blood Urea Nitrogen 12 mg/dL (8-23); Calcium 6.5 mg/dL (8.5-10.5); Carbon Dioxide 17 mmol/L (22-29); Chloride 110 mmol/L (98-107); Globulin 1.5 g/dL (1.3-4.6); Glucose 143 mg/dL (65-115); Magnesium 2.2 mg/dL (1.7-2.3); Osmolality Calculated 278 mOsm/kg (285-295); Potassium 4.5 mmol/L (3.5-5.1); Sodium 133 mmol/L (136-145); Total Protein 4.5 g/dL (6.6-8.7)
[2025-07-26] MEDS: metoclopramide 5 mg/mL SDV 2 mL IVP (02:34)
[2025-07-26] MEDS: octreotide 500 MCG in sodium chloride 0.9% (100 ml) 100 ML 10.1 MCG IV (03:50)
[2025-07-26] MEDS: calcium gluconate 0.9% NaCL 1 GM/50 ML PREMIX IV ×2 (03:52→04:20)
[2025-07-26] MEDS: potassium phosphate (mEq K) 40 MEQ in sodium chloride 0.9% (100 ml) 100 ML 27.25 MEQ IV (04:05)
[2025-07-26] MEDS: pantoprazole 40 mg SDV IVP (04:14)
--- NOTE | 2025-07-26 04:42 | PM.TDS ---
Transfer Summary Providers Date of Admission: 07/24/25 17:24 Date of Discharge/Transfer: 07/26/25 Attending Provider at Admission: Grayson Lambert Attending Provider at Transfer: Grayson Lambert Consults: Anisa Bailey MD General Surgery Primary Care Provider: KAREN Bermudez Transfer Plans: Anticipated date of transfer: 07/26/25. Diagnoses at Discharge Discharge Diagnosis 1. Upper GI bleeding: Details from hospital stay: Patient with upper GI bleeding found to have gastritis and stomach full of blood. EGD returned 900 cc bloody liquid including 250 cc irrigation. Patient has had additional rectal bleeding and colonoscopy showing intestines and colon full of blood. Intervenable bleeding source was not identified in the stomach. Patient is on octreotide and proton pump inhibitor as well as Reglan to empty the stomach in preparation for another look. Dr. Bailey has requested the patient be transferred to GI specialist for additional endoscopy if needed as well as interventional radiology if additional bleeding. 2. Acute blood loss anemia: Details from hospital stay: Patient received 3 units packed red cells for hemoglobin drop from 14.5 in September 2024 down to 6.1 on 07/24/2025. Hematocrit at 9 PM was 9.7 but then patient had significant bloody emesis and hypotension down to systolic of 50. She was then evaluated in endoscopy see above as well as Dr. Bailey's dictated reports with photos. Reason for Visit Reason for Visit WEAKNESS Brief History: Allie Rogers is a 70 year old female with a history of chronic obstructive pulmonary disease (COPD), hypertension, cigarette smoking, and alcohol use presents with weakness. She reports dark, black stools (melena) for approximately 24 days and had a small episode of dark, coffee-ground?type emesis the other day. Denies current abdominal pain and denies active vomiting after receiving an antiemetic in the emergency department. She notes dizziness in the setting of low blood pressure. She typically takes two blood-pressure medications every morning but did not take them today; she believes she took them yesterday. She is not on home oxygen. She reports ?a little bit? of sleep apnea and does not use a mask. Lives alone and identifies her son (Jaleel) and sister (Amarilis) as contacts. Had a black bowel movement earlier today, which was ?not as bad? as prior. Hospital Course Hospital Course Patient had 3 units of blood transfusion and a bowel prep with Dulcolax and mag citrate. Patient had bloody emesis on 07/25/2025 evening and dropped blood pressure to 50 systolic. She had fluid bolus, 250 cc albumin, Levophed, 3 units rapid blood transfusion and went to EGD and colonoscopy which showed stomach and GI tract full of blood but did not identify an active bleeding source. There was evidence of gastritis on EGD. Patient had additional blood from rectum and OG tube. She has been intubated for EGD and colonoscopy in the GI lab and remains intubated for transport and potential repeat EGD. She had a CTA showing gastritis but not definite bleeding vessel. Patient was discussed with Dr. Bone and Dr. Mckee and excepted in transfer for to [facility] Physical Exam Narrative: General Well-developed well-nourished female in no acute cardiopulmonary distress CV regular rate and rhythm on ventilator Lungs clear to auscultation on ventilator Abdomen but diminished bowel tones OG tube is in place with dark red emesis Calves no tenderness cords pedal edema right femoral triple-lumen is in place Urinary Catheter Management: Bustos: Cath Placed During This Visit: yes Reason for Continuing Indwelling Catheter: Accurate Measurement of Urinary Output in Critically Ill Patients Urinary Catheter Date of Insertion: 07/25/25 Urinary Catheter Time of Insertion: 00:22 TS Data Studies Completed and Pending Pending at discharge Category Date Time Status Blood Culture Stat Lab 07/24/25 15:37 Results Complete Blood Count w/Auto AM LABS Lab 07/27/25 04:00 Ordered Complete Blood Count w/Auto AM LABS Lab 07/28/25 04:00 Ordered Comprehensive Metabolic Panel AM LABS Lab 07/27/25 04:00 Ordered Comprehensive Metabolic Panel AM LABS Lab 07/28/25 04:00 Ordered Leukocyte Reduced RBC Routine Lab 07/24/25 17:03 Results Type and Screen Routine Lab 07/24/25 17:03 Results Urine Culture Stat Lab 07/25/25 00:20 Received Completed Studies During Hospitalization Category Date Time Status CT angio abdomen pelvis [id number] Stat Cat Scan 07/26/25 02:25 Completed XR chest 1V [id number] Stat Exams 07/26/25 02:03 Completed XR chest 1V portable [id number] Stat Exams 07/24/25 14:57 Completed Laboratory Last Values WBC 8.12 10^3/uL (3.29-11.43) 07/26/25 02:08 RBC 3.78 10^6/uL (3.85-5.65) L 07/26/25 02:08 Hgb 11.20 g/dL (11.27-16.99) L 07/26/25 02:08 Hct 35.1 % (36-47) L D 07/26/25 02:08 MCV 92.9 fl (85-98) 07/26/25 02:08 MCH 29.6 pg (27-33) 07/26/25 02:08 MCHC 31.9 g/dL (30-55) 07/26/25 02:08 RDW 17.2 % (12.1-15.1) H 07/26/25 02:08 Plt Count 155 10^3/cmm (157-399) L 07/26/25 02:08 MPV 9.6 fL (7.4-10.4) 07/26/25 02:08 Neut % (Auto) 83.4 % 07/26/25 02:08 Lymph % (Auto) 10.3 % 07/26/25 02:08 Slope % (Auto) 4.9 % 07/26/25 02:08 Eos % (Auto) 0.6 % 07/26/25 02:08 Baso % (Auto) 0.2 % 07/26/25 02:08 Neut # (Auto) 6.76 10^3/uL (1.8-7.7) 07/26/25 02:08 Lymph # (Auto) 0.8 10^3/uL (0.8-4.8) 07/26/25 02:08 Slope # (Auto) 0.4 10^3/uL (0.2-0.9) 07/26/25 02:08 Eos # (Auto) 0.1 10^3/uL (0.0-0.8) 07/26/25 02:08 Baso # (Auto) 0.0 10^3/uL (0.0-0.1) 07/26/25 02:08 Nucleated RBC % (auto) 0 % 07/26/25 02:08 Nucleated RBCs # 0.0 /100WBC 07/26/25 02:08 PT 14.30 SECONDS (12.1-14.9) 07/26/25 02:08 INR 1.04 (0.8-1.2) 07/26/25 02:08 Sodium 133 mmol/L (136-145) L 07/26/25 02:08 Potassium 4.5 mmol/L (3.5-5.1) 07/26/25 02:08 Chloride 110 mmol/L (98-107) H 07/26/25 02:08 Carbon Dioxide 17 mmol/L (22-29) L 07/26/25 02:08 Anion Gap 10.5 (5-19) 07/26/25 02:08 BUN 12 mg/dL (8-23) 07/26/25 02:08 Creatinine 0.6 mg/dL (0.5-0.9) 07/26/25 02:08 GFR Calculation 99.1 mL/min (90-130) 07/26/25 02:08 Glucose 143 mg/dL (65-115) H 07/26/25 02:08 POC Glucose 221 mg/dL (70-110) H 07/25/25 05:12 Calculated Osmolality 278 mOsm/kg (285-295) L 07/26/25 02:08 Lactic Acid 1.2 mmol/L (0.5-2.2) 07/24/25 15:17 Calcium 6.5 mg/dL (8.5-10.5) L 07/26/25 02:08 Phosphorus 1.5 mg/dL (2.5-4.5) L D 07/26/25 02:08 Magnesium 2.2 mg/dL (1.7-2.3) 07/26/25 02:08 Total Bilirubin 0.5 mg/dL (0.15-1.2) 07/26/25 02:08 AST 26 U/L (0-32) 07/26/25 02:08 ALT 27 U/L (0-33) 07/26/25 02:08 Alkaline Phosphatase 54 U/L (35-105) 07/26/25 02:08 Creatine Kinase 37 U/L (26-192) 07/24/25 15:17 Total Protein 4.5 g/dL (6.6-8.7) L 07/26/25 02:08 Albumin 3.0 g/dL (3.5-5.2) L 07/26/25 02:08 Globulin 1.5 g/dL (1.3-4.6) 07/26/25 02:08 Urine Color [place] (Yellow) A 07/25/25 00:20 Urine Appearance Cloudy (CLEAR) A 07/25/25 00:20 Urine pH 5.5 (5-7) 07/25/25 00:20 Ur Specific Marceline 1.020 (1.005-1.030) 07/25/25 00:20 Urine Protein Negative (Negative) 07/25/25 00:20 Urine Glucose (UA) Negative (Normal) 07/25/25 00:20 Urine Ketones Trace (Negative) 07/25/25 00:20 Urine Blood Negative (Negative) 07/25/25 00:20 Urine Nitrate Positive (Negative) A 07/25/25 00:20 Urine Bilirubin Negative (Negative) 07/25/25 00:20 Urine Urobilinogen 1.0 mg/dL (Negative) 07/25/25 00:20 Ur Leukocyte Esterase 1+ (Negative) A 07/25/25 00:20 Urine RBC 0-2 /hpf (0-2) 07/25/25 00:20 Urine WBC 6-10 /hpf (0-5) 07/25/25 00:20 Ur Squamous Epith Cells 6-10 /hpf (0-5) 07/25/25 00:20 Amorphous Sediment Not Reportable 07/25/25 00:20 Urine Bacteria 4+ /hpf (NONE) H 07/25/25 00:20 Hyaline Casts 5.36 /lpf 07/25/25 00:20 Influenza A (PCR) Negative (Negative) 07/24/25 15:15 Influenza Type B (PCR) Negative (Negative) 07/24/25 15:15 RSV (PCR) Negative (Negative) 07/24/25 15:15 SARS-CoV-2 (PCR) Negative (Negative) 07/24/25 15:15 Blood Type B Positive 07/24/25 17:03 Rho(D) Type Rh positive 07/24/25 17:03 Antibody Screen Negative 07/24/25 17:03 Crossmatch See Detail 07/24/25 17:03 Radiology Impressions Chest X-Ray 07/26/25 02:03 IMPRESSION: 1. Endotracheal tube terminates in the trachea. 2. Feeding tube terminates in the stomach. Abdomen/Pelvis CTA 07/26/25 02:25 IMPRESSION: 1. Dependent airspace consolidations, consistent with multilobar pneumonia. Correlate for aspiration. Small bilateral parapneumonic pleural effusions. 2. Dense fluid in the sigmoid colon and rectum, concerning for blood. No CTA evidence of active gastrointestinal bleed. 3. Wall thickening of the urinary bladder, which contains a Bustos catheter. If there is concern for UTI, urinalysis recommended. 4. Moderate wall thickening of the stomach with mucosal hyperemia, concerning for gastritis. Recent Clincial Data Last Vital Signs Temp 97.5 F L 07/26/25 04:15 Pulse 65 07/26/25 04:15 Resp 18 07/26/25 04:15 BP 109/73 07/26/25 04:15 Pulse Ox 100 07/26/25 04:15 O2 Del Method Mechanical Ventilation 07/26/25 04:15 O2 Flow Rate 2 07/24/25 20:15 FiO2 100 07/26/25 04:15 Vital Signs Temp Pulse Resp BP Pulse Ox O2 Del Method FiO2 07/26/25 04:15 97.5 F L 65 18 109/73 100 Mechanical Ventilation 100 07/26/25 04:00 65 116/76 100 07/26/25 03:45 68 116/75 100 07/26/25 03:43 18 100 100 07/26/25 03:30 68 116/76 100 07/26/25 03:15 70 128/84 07/26/25 03:00 133/82 07/26/25 02:45 133/82 07/26/25 02:30 75 136/89 100 07/26/25 02:16 76 136/86 100 07/26/25 02:00 100 07/26/25 01:45 84 141/90 100 07/26/25 01:30 98 148/102 89 L Mechanical Ventilation 07/26/25 01:15 96.4 F L 90 157/94 07/26/25 01:15 33 H 94 100 07/26/25 01:00 99/64 07/26/25 00:45 99/64 07/26/25 00:30 99/64 07/26/25 00:15 99/64 07/26/25 00:00 9907/25/25 23:45 90 20 H 93 07/25/25 23:30 82 18 88/60 94 07/25/25 23:15 82 31 H 86/55 100 07/25/25 23:00 85 25 H 76/57 95 07/25/25 22:45 90 33 H 62/47 97 07/25/25 22:30 94 27 H 105/72 97 07/25/25 22:15 81 22 H 125/79 95 07/25/25 22:00 73 25 H 125/79 97 07/25/25 21:45 77 23 H 126/80 96 07/25/25 21:30 78 23 H 130/81 98 07/25/25 21:15 75 24 H 143/83 99 07/25/25 21:00 75 24 H 141/80 99 07/25/25 20:45 74 21 H 140/82 95 07/25/25 20:30 77 22 H 136/82 100 07/25/25 20:15 75 22 H 132/87 93 07/25/25 20:00 73 23 H 131/84 96 07/25/25 20:00 75 21 H 96 Room Air 07/25/25 19:45 97.7 F 72 20 H 125/79 100 07/25/25 19:30 72 22 H 116/75 95 07/25/25 19:15 17 110/64 100 07/25/25 19:00 74 22 H 117/70 99 07/25/25 18:45 73 17 117/70 100 07/25/25 18:00 76 28 H 120/75 100 Room Air 07/25/25 17:45 79 28 H 121/74 99 07/25/25 17:30 71 21 H 121/74 98 Room Air 07/25/25 17:15 80 27 H 113/80 100 07/25/25 17:00 75 21 H 93 07/25/25 16:45 75 24 H 111/67 97 Intake & Output/Weight 07/23/25 07/24/25 07/25/25 07/26/25 06:59 06:59 06:59 06:59 Intake Total 2801 / 2801 4894.822 / 4894.822 Output Total 255 / 255 1325 / 1325 Balance 2546 / 2546 3569.822 / 3569.822 Weight 54 kg Procedures Performed EGD 07/26/2025 Colonoscopy 07/26/2025 Right femoral triple-lumen catheter 07/25/2025 Endotracheal intubation 07/26/2025 Vitals Last Vital Signs Temp 97.5 F L 07/26/25 04:15 Pulse 65 07/26/25 04:15 Resp 18 07/26/25 04:15 BP 109/73 07/26/25 04:15 Pulse Ox 100 07/26/25 04:15 O2 Del Method Mechanical Ventilation 07/26/25 04:15 O2 Flow Rate 2 07/24/25 20:15 FiO2 100 07/26/25 04:15 TS Medications Medications Acetaminophen (Acetaminophen 325 Mg Tablet) 650 mg PO Q4H PRN PRN Reason: MILD PAIN OR INCREASE TEMP Last Admin: 07/25/25 18:43 Dose: 650 mg Albuterol/Ipratropium (Ipratropium-Albuterol 3 Ml Neb) 3 ml INHALATION Q6H.RESP BOB Last Admin: 07/26/25 03:34 Dose: Not Given Albuterol/Ipratropium (Ipratropium-Albuterol 3 Ml Neb) 3 ml INHALATION Q6H PRN PRN Reason: SHORTNESS OF BREATH Octreotide Acetate 500 mcg/ (Sodium Chloride) 101 mls @ 10.1 mls/hr IV .Q10H BOB Last Admin: 07/26/25 03:50 Dose: 50 mcg/hr, 10.1 mls/hr Norepinephrine Bitartrate (Levophed) 4 mg in 250 mls @ 0 mls/hr IV .Q0M BOB; Protocol Last Titration: 07/25/25 07:28 Dose: 0 mcg/min, 0 mls/hr Fentanyl (Sublimaze) 1,000 mcg in 100 mls @ 0 mls/hr IV .Q0M BOB; Protocol Last Titration: 07/26/25 02:04 Dose: 75 mcg/hr, 7.5 mls/hr Propofol (Diprivan) 1,000 mg in 100 mls @ 0 mls/hr IV .Q0M BOB; Protocol Last Titration: 07/26/25 04:09 Dose: 45 mcg/kg/min, 14.58 mls/hr Midazolam HCl (Versed) 100 mg in 100 mls @ 0 mls/hr IV .Q0M BOB; Protocol Last Admin: 07/26/25 02:31 Dose: 1 mg/hr, 1 mls/hr Potassium Phosphate 40 meq/ (Sodium Chloride) 109.0909 mls @ 27.25 mls/hr IV ONCE ONE Stop: 07/26/25 06:58 Last Admin: 07/26/25 04:05 Dose: 27.25 mls/hr Lorazepam (Lorazepam 2 Mg/Ml Inj 1 Ml) 0.5 mg IVP Q4H PRN PRN Reason: NAUSEA Last Admin: 07/25/25 22:44 Dose: 0.5 mg Metoclopramide HCl (Metoclopramide 5 Mg/Ml Sdv 2 Ml) 5 mg IVP Q6H [facility] Last Admin: 07/26/25 02:34 Dose: 5 mg Nicotine (Nicotine 21 Mg Patch) 1 patch TRANSDERMA DAILY [facility] Last Admin: 07/25/25 22:01 Dose: 1 patch Nicotine Polacrilex (Nicotine 4 Mg Lozenge) 4 mg MUCOUS MEM Q2H PRN PRN Reason: NICOTINE CRAVINGS Ondansetron HCl (Ondansetron 2 Mg/Ml Sdv 2 Ml) 4 mg IVP Q8H PRN PRN Reason: vomiting, or N/V if npo Last Admin: 07/25/25 21:58 Dose: 4 mg Oxycodone HCl (Oxycodone 5 Mg Ir Tab/Cap) 5 mg PO Q4H PRN PRN Reason: MODERATE PAIN Last Admin: 07/24/25 23:09 Dose: 5 mg Pantoprazole Sodium (Pantoprazole 40 Mg Sdv) 40 mg IVP Q12H [facility] Last Admin: 07/26/25 04:14 Dose: 40 mg Discontinued Medications Bisacodyl (Bisacodyl 5 Mg Tablet) 40 mg PO ONCE ONE Stop: 07/24/25 14:01 Last Admin: 07/24/25 22:36 Dose: Not Given Bisacodyl (Bisacodyl 5 Mg Tablet) 40 mg PO ONCE ONE Stop: 07/25/25 14:01 Bisacodyl (Bisacodyl 5 Mg Tablet) 40 mg PO ONCE ONE Stop: 07/25/25 08:01 Bisacodyl (Bisacodyl 5 Mg Tablet) 40 mg PO ONCE ONE Stop: 07/25/25 12:01 Last Admin: 07/25/25 11:24 Dose: 40 mg Bisacodyl (Bisacodyl 5 Mg Tablet) 40 mg PO ONCE ONE Stop: 07/25/25 20:01 Last Admin: 07/25/25 19:46 Dose: 40 mg Epinephrine HCl (Epinephrine 1 Mg/Ml Inj) Confirm Administered Dose 1 mg .ROUTE .STK-MED ONE Stop: 07/25/25 23:43 Sodium Chloride (Sodium Chloride 0.9%) 1,000 mls @ 999 mls/hr IV .Q1H1M ONE Stop: 07/24/25 16:44 Last Admin: 07/24/25 15:54 Dose: 999 mls/hr Potassium Chloride/Dextrose/Sod Cl (D5-Ns 0.45% + Kcl 20 Meq) 20 meq in 1,000 mls @ 125 mls/hr IV .Q8H [facility] Last Infusion: 07/25/25 06:45 Dose: Infused Sodium Chloride (Sodium Chloride 0.9%) 1,000 mls @ 999 mls/hr IV .Q1H1M ONE Stop: 07/25/25 04:52 Last Infusion: 07/25/25 05:01 Dose: Infused Potassium Chloride/Sodium Chloride (Sodium Chlor 0.9% + Kcl 40 Meq) 40 meq in 1,000 mls @ 125 mls/hr IV .Q8H BOB Stop: 07/25/25 21:29 Last Infusion: 07/26/25 01:50 Dose: Infused Magnesium Sulfate (Magnesium Sulfate Premix) 2 gm in 50 mls @ 50 mls/hr IV ONCE ONE Stop: 07/25/25 21:28 Last Infusion: 07/26/25 01:50 Dose: Infused Sodium Chloride (Sodium Chloride 0.9%) 1,000 mls @ 999 mls/hr IV .Q1H1M BOB Stop: 07/26/25 01:00 Last Admin: 07/26/25 04:00 Dose: Not Given Sodium Chloride (Sodium Chloride 0.9%) 1,000 mls @ 999 mls/hr IV .Q1[facility] ONE Stop: 07/25/25 23:54 Last Infusion: 07/26/25 02:09 Dose: Infused Albumin Human (Albumin) Confirm Administered Dose 12.5 gm in 250 mls @ as directed .ROUTE .STK-MED ONE Stop: 07/25/25 23:43 Sodium Chloride (Sodium Chloride 0.9% (100 Ml)) Confirm Administered Dose 400 mls @ as directed .ROUTE .STK-MED ONE Stop: 07/26/25 00:21 Propofol (Diprivan) Confirm Administered Dose 1,000 mg in 100 mls @ as directed .ROUTE .ST-MED ONE Stop: 07/26/25 01:10 Fentanyl (Sublimaze) Confirm Administered Dose 1,000 mcg in 100 mls @ as directed .ROUTE .STK-MED ONE Stop: 07/26/25 01:34 Last Admin: 07/26/25 02:23 Dose: Not Given Calcium Gluconate/Sodium Chloride (Calcium Gluconate 0.9% Nacl) 1 gm in 50 mls @ 100 mls/hr IV Q30M [facility] Stop: 07/26/25 03:59 Last Admin: 07/26/25 04:20 Dose: 100 mls/hr Lorazepam (Lorazepam 2 Mg/Ml Inj 1 Ml) 0.5 mg IVP ONCE ONE Stop: 07/25/25 22:53 Last Admin: 07/26/25 01:54 Dose: Not Given Magnesium Citrate (Magnesium Citrate Btl 296 Ml) 296 ml PO ONCE [facility] Stop: 07/25/25 18:16 Magnesium Citrate (Magnesium Citrate Btl 296 Ml) 296 ml PO ONCE ONE Stop: 07/24/25 21:46 Last Admin: 07/24/25 22:36 Dose: Not Given Magnesium Citrate (Magnesium Citrate Btl 296 Ml) 296 ml PO 1200,2000 [facility] Stop: 07/25/25 20:01 Last Admin: 07/25/25 19:52 Dose: 296 ml Midazolam HCl (Midazolam 1 Mg/Ml Inj 2 Ml) Confirm Administered Dose 2 mg .ROUTE .ST-MED ONE Stop: 07/25/25 23:41 Midazolam HCl (Midazolam 1 Mg/Ml Inj 2 Ml) Confirm Administered Dose 2 mg .ROUTE .ST-MED ONE Stop: 07/26/25 02:04 Midazolam HCl (Midazolam 1 Mg/Ml Inj 2 Ml) 2 mg IVP ONCE ONE Stop: 07/26/25 02:07 Last Admin: 07/26/25 02:05 Dose: 2 mg Norepinephrine Bitartrate (Norepinephrine 1 Mg/Ml Sdv 4 Ml) Confirm Administered Dose 4 mg .ROUTE .STK-MED ONE Stop: 07/25/25 23:43 Octreotide Acetate (Octreotide 100 Mcg/Ml Sdv) 50 mcg IVP ONCE ONE Stop: 07/25/25 22:54 Last Admin: 07/25/25 23:10 Dose: 50 mcg Octreotide Acetate (Octreotide 100 Mcg/Ml Sdv) Confirm Administered Dose 100 mcg .ROUTE .STK-MED ONE Stop: 07/25/25 23:08 Pantoprazole Sodium (Pantoprazole 40 Mg Sdv) 80 mg IVP ONCE ONE Stop: 07/24/25 17:25 Last Admin: 07/24/25 19:22 Dose: 80 mg Propofol (Propofol 10 Mg/Ml Sdv 20 Ml) Confirm Administered Dose 200 mg .ROUTE .STK-MED ONE Stop: 07/25/25 23:36 Sodium Chloride (Sodium Chloride 0.9% 100 Ml Bag) 50 ml IV PRN PRN PRN Reason: Blood transfusion prime and flush Stop: 07/25/25 18:47 Last Admin: 07/26/25 02:41 Dose: 50 ml Sodium Chloride (Sodium Chloride 0.9% 100 Ml Bag) 50 ml IV PRN PRN PRN Reason: Blood transfusion prime and flush Stop: 07/25/25 22:30 Last Admin: 07/24/25 23:11 Dose: 50 ml Sodium Chloride (Sodium Chloride 0.9% 100 Ml Bag) 50 ml IV PRN PRN PRN Reason: Blood transfusion prime and flush Stop: 07/26/25 22:56 Last Admin: 07/26/25 02:42 Dose: 50 ml Succinylcholine Chloride (Succinylcholine 20 Mg/Ml Sdv 10ml) Confirm Administered Dose 200 mg .ROUTE .STK-MED ONE Stop: 07/26/25 00:52 Vasopressin (Vasopressin 20 Unit/Ml Inj) Confirm Administered Dose 20 unit .ROUTE .STK-MED ONE Stop: 07/25/25 23:43 Allergies No Known Allergies Allergy (Verified 07/18/25 14:56) Home Medications albuterol sulfate 90 mcg/actuation aerosol inhaler (Ventolin HFA) 2 puff inhalation Q6H PRN shortness of breath or wheezing #8.5 grams 06/25/25 [Rx Confirmed 07/25/25] folic acid 1 mg tablet 1 mg PO DAILY #30 tabs 06/25/25 [Rx Confirmed 07/25/25] hydrochlorothiazide 25 mg tablet 25 mg PO DAILY #30 tabs 06/25/25 [Rx Confirmed 07/25/25] umeclidinium 62.5 mcg-vilanterol 25 mcg/actuation powdr for inhalation (Anoro Ellipta) 1 inh inhalation DAILY #60 ea 06/25/25 [Rx Confirmed 07/25/25] valsartan 160 mg tablet (Diovan) 160 mg PO DAILY #30 tabs 06/25/25 [Rx Confirmed 07/25/25] vitamin B complex 1 cap PO DAILY #30 caps 06/25/25 [Rx Confirmed 07/25/25] Discharge Plan Discharge Patient Disposition: Home Condition: Stable Prescriptions: No Action albuterol sulfate [Ventolin HFA] 90 mcg/actuation HFA aerosol inhaler 2 puff inhalation Q6H PRN (Reason: shortness of breath or wheezing) Qty: 8.5 2RF folic acid 1 mg tablet 1 mg PO DAILY Qty: 30 2RF hydrochlorothiazide 25 mg tablet 25 mg PO DAILY Qty: 30 5RF Anoro Ellipta 62.5-25 mcg/actuation blister with device 1 inh inhalation DAILY Qty: 60 2RF valsartan [Diovan] 160 mg tablet 160 mg PO DAILY Qty: 30 5RF vitamin B complex Capsule 1 cap PO DAILY Qty: 30 2RF Discharge Order = DC NOW: Discharge Order (Routine); Ordered 07/26/25 Ordered By: Herb Easton Referrals: Siri Rodriguez, ENTRY LEVEL ACCOUNT MANAGER-C [Primary Care Provider, Family Practice] Patient Instructions: GI Post Discharge Instructions w/ Anesthesia, Opioid Safety, Patient Portal & Anthony Instructions Transfer Attestations Time Spent in Transfer Care: critical care time Critical Care Time (min): 75 Quality Metrics Clinical Quality Measures [ No reported AMI, CVA or VTE this stay] Coding Level of Care Code Acute Code for Chg Fwd Diagnoses Upper GI bleeding K92.2 Acute blood loss anemia D62 Time Spent (min) 75 Comment [id number]
[2025-07-26 05:19] LABS: ABG PCO2 29.7 mmHg (35-45); ABG PH Result 7.32 (7.35-7.45); Alveolar-Arterial Oxygen Gradi 53.7 mmHg (5-10); Arterial Blood Gas Hematocrit 33.9 % (37-47); Blood Gas Operator Identificat SAM; Blood Gas Sample Site Brachial, right; Blood Gas Sample Type Arterial; Blood Gas Tidal Volume 0.35; Carboxyhemoglobin 0.7 %THgb (0.4-20.1); Glucose Level-ABG 120.0 mg/dL (70-115); HCO3 ABG 15.3 mmol/L (22-26); Ionized Calcium Level - ABG 1.2 mmol/L (1.1-1.4); Methemoglobin 0.5 % (0.4-1.5); Oxygen Saturation ABG > 99.1; PEEP 5.0 cmH20; PO2 ABG 252.0 mmHg (80.0-100.0); PO2 FiO2 Ratio Arterial Blood 252; Potassium Level - ABG 4.5 mmol/L (3.5-5.0); Sodium Level - ABG 133.0 mmol/L (131-143)
--- NOTE | 2025-07-26 06:23 | PC.NURSE ---
Transfer Patient accepted to [facility] under Dr. Bone to ICU 3324. Report called to MICHELL Howard. Air evac contacted for transport; ETA 10 minutes.
[2025-07-26] MEDS: propofol 1,000 MG/100 ML INJ 9.72 MG IV (06:49)
[2025-07-26] MEDS: fentaNYL 1,000 MCG/100 ML BAG 5 MCG IV (06:59)
--- NOTE | 2025-07-26 07:37 | PC.NURSE ---
Air Evac Patient left unit with air evac crew at around 0715. Bag of fentanyl as well as bottle of propofol sent with patient and crew for transportation. All belongings sent with patient at time of departure. Son, Jaleel Ortiz, updated on ETA as well as patient condition. Son verbalized understanding.
== END 2025-07-26 07:20 | disposition short-term general hospital (02) | DRG 377 ==
LOC: ER 16:27 → ER IP 17:44 → ICU 20:10
PROVIDERS: Internal Medicine; Student in an Organized Health Care Education/Training Program; Admitting Provider Internal Medicine; Emergency Provider Family Medicine; PCP Nurse Practitioner; Visit Provider Internal Medicine
PROC: 0DJ08ZZ Inspection of Upper Intestinal Tract, Via Natural or Artificial Opening Endoscopic (ICD-10-PCS; principal; 2025-07-26 09:15)
PROC: 0DJD8ZZ Inspection of Lower Intestinal Tract, Via Natural or Artificial Opening Endoscopic (ICD-10-PCS; CPT 45378; 2025-07-26 09:15)
DX: K29.01 Acute gastritis with bleeding (principal); R57.8 Other shock; D62 Acute posthemorrhagic anemia; F10.10 Alcohol abuse, uncomplicated; J44.9 Chronic obstructive pulmonary disease, unspecified; I10 Essential (primary) hypertension; F17.210 Nicotine dependence, cigarettes, uncomplicated; I95.9 Hypotension, unspecified; G47.30 Sleep apnea, unspecified; K57.30 Diverticulosis of large intestine without perforation or abscess without bleeding; E87.6 Hypokalemia; R74.01 Elevation of levels of liver transaminase levels
CPT/HCPCS: 36415; 36416; 36430; 36592; 36600; 43235; 45378; 51702; 71045; 74174; 80048; 80051; 80053; 81001; 82330; 82550; 82805; 82962; 83605; 83735; 84100; 85018; 85025; 85610; 86850; 86900; 86920; 87040; 87077; 87086; 87186; 87637; 93005; 94640; 94799; 96374; 99285; A4570; C1751; J0169; J0330; J0612; J2060; J2250; J2354; J2405; J2470; J2704; J2765; J3010; J3475; J3490; J7030; J9999; P9016; P9045

== ENCOUNTER → 2025-08-05 10:32 | Outpatient (BNVA) | payer MEDICARE, MEDICAID, SELFPAY | PROVIDERS: PCP Nurse Practitioner; Visit Provider Family Medicine | DX: K92.2 Gastrointestinal hemorrhage, unspecified (principal); D62 Acute posthemorrhagic anemia | CPT/HCPCS: 80053; 85025 ==